=== PATIENT | female | born 1965 | race Caucasian/White ===

== ENCOUNTER 2021-12-18 16:34 | Observation (INO) | payer OTHER ==
[2021-12-18] MEDS ORDERED: NITROGLYCERIN SL TABS 0.4 MG TAB SUBLINGUAL STA (16:46)
[2021-12-18] MEDS ORDERED: ASPIRIN 81 MG PO STA (16:46)
--- NOTE | 2021-12-18 16:49 | ED ---
General Adult HPI - General Chief complaint: Chest Pain Stated complaint: chest pain Time Seen by Provider: 12/18/21 16:35 Source: patient, EMS Mode of arrival: EMS Limitations: no limitations - History of Present Illness Initial comments: Patient was transferred to our ED from the [facility] stand-alone ED by ambulance for evaluation of chest pain. Patient reports having central and left-sided chest pain radiating to her left arm with associated diaphoresis and nausea for the past 2 days. Patient states that her pain has been constant, but waxes and wanes. Patient states that her pain is currently 5/10 in severity. Patient had an EKG, labs and chest x-ray done at the [facility] ED prior to transfer to our ED. Patient's troponin was reportedly negative. Patient's chest x-ray reportedly showed no acute process. Patient had a negative Covid test obtained today. Patient's labs were all reviewed myself and are only pertinent for an elevated WBC count of 13.1, elevated platelets of 419 and elevated glucose of 121. Patient denies taking any nitroglycerin or medication for her chest pain today. Patient reports only taking 1 baby aspirin earlier today. Patient denies receiving any medication at the [facility] ED today. Patient states that her care asst is here at [facility]. - Related Data Home Medications Medication Instructions Recorded Confirmed Nicotine 21Mg/24Hr Patch [Habitrol] 1 patch TRANSDERM DAILY 09/07/21 12/18/21 Atorvastatin [Lipitor] 20 mg PO DAILY 12/18/21 12/18/21 Ipratropium-Albuterol Nebulize 3 ml INHALATION RT-QID PRN 12/18/21 12/18/21 [Duoneb 0.5 mg-3 mg/3 ml Soln] Nitroglycerin Sl Tabs [Nitrostat] 0.4 mg SL Q5M PRN 12/18/21 12/18/21 Spironolactone [Aldactone] 25 mg PO DAILY 12/18/21 12/18/21 Vitamin B Complex 1 cap PO DAILY 12/18/21 12/18/21 carvediloL [Coreg] 3.125 mg PO BID 12/18/21 12/18/21 lisinopriL [Zestril] 5 mg PO DAILY 12/18/21 12/18/21 Previous Rx's Medication Instructions Recorded Albuterol Inhaler [Ventolin Hfa 1 puff INHALATION RT-QID PRN 30 09/02/21 Inhaler] Days #8 gm Aspirin 81 mg PO DAILY 30 Days #30 09/02/21 Allergies Allergy/AdvReac Type Severity Reaction Status Date / Time No Known Allergies Allergy Verified 12/18/21 16:45 Review of Systems ROS Statement: Those systems with pertinent positive or pertinent negative responses have been documented in the HPI. ROS Other: All systems not noted in ROS Statement are negative. Past Medical History Past Medical History: Coronary Artery Disease (CAD), Hyperlipidemia History of Any Multi-Drug Resistant Organisms: None Reported Past Surgical History: Appendectomy, Tubal Ligation Additional Past Surgical History / Comment(s): Hodgkins lymphoma x2 back in 2007 and 2009, stent Past Anesthesia/Blood Transfusion Reactions: No Reported Reaction Past Psychological History: No Psychological Hx Reported Smoking Status: Current every day smoker Past Alcohol Use History: None Reported Past Drug Use History: None Reported General Exam Limitations: no limitations General appearance: alert, in no apparent distress Head exam: Present: atraumatic, normocephalic Eye exam: Present: normal appearance, EOMI ENT exam: Present: mucous membranes moist Neck exam: Present: other (Trachea is in midline) Respiratory exam: Present: normal lung sounds bilaterally. Absent: respiratory distress, wheezes, rales, rhonchi, stridor, chest wall tenderness Cardiovascular Exam: Present: regular rate, normal rhythm, normal heart sounds, other (Normal radial pulses bilaterally) GI/Abdominal exam: Present: soft. Absent: distended, tenderness, guarding Extremities exam: Present: other (Negative Homans sign bilaterally). Absent: tenderness, pedal edema, calf tenderness Neurological exam: Present: alert, oriented X3. Absent: motor sensory deficit Psychiatric exam: Present: normal affect, normal mood Skin exam: Present: warm, dry, intact, normal color Course Vital Signs 12/18/21 12/18/21 16:37 18:51 Temperature 98.8 F Pulse Rate 104 H 96 Respiratory 20 20 Rate Blood Pressure 113/78 131/66 O2 Sat by Pulse 97 98 Oximetry - Reevaluation(s) Reevaluation #1: 12/18/21 20:56 Case, H&P, test results and ED management were discussed with Dr. Rj Apple. He accepts hospital admission. He has no further recommendations at this time. 12/18/21 20:59 Patient remains alert and breathing comfortably. Patient denies development of any new symptoms while in the ED. Patient is aware of her test results, and she agrees with hospital admission at this time. EKG Findings - EKG Comments: EKG Findings:: Normal sinus rhythm, ventricular rate of 94 bpm, no ectopy, left bundle branch block, normal NM interval, QRS duration of 134 ms, normal QT interval, normal axis, no significant change when compared to 09/08/2021 EKG Medical Decision Making - Medical Decision Making Patient has had 2 negative troponins now. Patient's EKG shows a left bundle branch block and is unchanged. Patient's CT angiography chest is negative for pulmonary embolism. Given the patient's symptoms and history of CAD/cardiac risk factors, will admit the patient to the hospital for cardiac monitoring, serial troponins and further evaluation. Dr. Rj Apple has accepted hospital admission. - Lab Data Lab Results 12/18/21 12/18/21 12/18/21 Range/Units 16:52 16:52 16:52 PT 9.8 (9.0-12.0) sec INR 0.9 (<1.2) APTT 22.1 (22.0-30.0) sec D-Dimer 1.17 H (<0.60) mg/L FEU Troponin I <0.012 (0.000-0.034) ng/mL NT-Pro-B Natriuret Pep 1730 pg/mL - Radiology Data Chest x-ray: No acute cardiopulmonary disease/process. CT angiography chest with IV contrast: No evidence of pulmonary embolism. Right lower lobe a 9 mm pulmonary nodule. Follow-up chest CT in 3 months versus PET/CT is recommended. Right medial lower lobe consolidation which may represent atelectasis. Attention on follow-up imaging. Mild COPD changes. Mild cardiomegaly with trace pericardial effusion. Reflux of contrast into the IVC and hepatic veins suggestive of a right heart dysfunction. Disposition Clinical Impression: Chest pain Disposition: ADMITTED IP TO THIS HOSP Condition: Stable Is patient prescribed a controlled substance at d/c from ED?: No Referrals: Nnig Acosta MD [Primary Care Provider] - 1-2 days Time of Disposition: 21:00
--- NOTE | 2021-12-18 17:34 | XR ---
EXAMINATION TYPE: XR chest 2V DATE OF EXAM: 12/18/2021 5:24 PM COMPARISON: Chest radiographs from 08/31/2021. TECHNIQUE: XR chest 2V Frontal and lateral views of the chest . CLINICAL INDICATION:Female, 56 years old with history of Chest Pain; FINDINGS: Lungs/Pleura: No pleural effusion, pneumothorax, or focal consolidation. Pulmonary vascularity: Unremarkable. Heart/mediastinum: Cardiomediastinal silhouette is unremarkable. Musculoskeletal: No acute osseous pathology. IMPRESSION: No acute cardiopulmonary disease/process.
[2021-12-18 17:38] LABS: INR 0.9 (<1.2); Partial Thromboplastin Time 22.1 sec (22.0-30.0); Prothrombin Time 9.8 sec (9.0-12.0)
[2021-12-18] MEDS ORDERED: SODIUM CHLORIDE 0.9% 500 ML 500 ML IV ONE (18:10)
--- NOTE | 2021-12-18 19:00 | CT ---
EXAMINATION TYPE: CT chest angio for PE CT DLP: 315.5 mGycm, Automated exposure control for dose reduction was used. DATE OF EXAM: 12/18/2021 6:41 PM COMPARISON: Chest radiograph from same day. CLINICAL INDICATION:Female, 56 years old with history of chest pain, elevated d-dimer TECHNIQUE/CONTRAST: CTA scan of the thorax is performed with IV Contrast, patient injected with 100 mL of Isovue 370, pul monary embolism protocol. MIP images are created and reviewed. FINDINGS: Pulmonary Artery: There is no evidence for a filling defect within the pulmonary vasculature to sugge st acute pulmonary embolism. The pulmonary artery is of normal size. Reflux of contrast in the IVC a nd hepatic veins. Lungs/Pleura: No pleural effusion or pneumothorax. Left lower lobe subsegmental atelectasis. Medial r ight lower lobe consolidation. Medial right lower lobe 9 mm pulmonary nodule (series 406, image 86). Mild paraseptal and centrilobular emphysematous changes. Airway: Large airways are patent. Heart: Mildly enlarged with left ventricle. Trace pericardial effusion. Vasculature: No evidence of aortic aneurysm. Mediastinum: No gross evidence of adenopathy. Multiple nonenlarged mediastinal calcified lymph nodes. Musculoskeletal: No acute osseous abnormalities Soft Tissues: Unremarkable. Lower neck: No significant findings. Upper Abdomen: No significant findings. IMPRESSION: * No evidence of pulmonary embolism. * Right lower lobe 9 mm pulmonary nodule. Follow-up chest CT in 3 months versus PET/CT is recommende d. * Right medial lower lobe consolidation which may represent atelectasis. Attention on follow-up imag ing. * Mild COPD changes. * Mild cardiomegaly with trace pericardial effusion. * Reflux of contrast into the IVC and hepatic veins suggestive of right heart dysfunction.
[2021-12-19] MEDS: IPRATROPIUM-ALBUTEROL 3 ML NEB INHALATION PRN ×3 (02:34→11:19)
[2021-12-19 03:30] LABS: Basophils # (A) 0.1 k/uL (0-0.2); Basophils % (A) 1 %; Eosinophils # (A) 0.1 k/uL (0-0.7); Eosinophils % (A) 1 %; HCT 38.2 % (34.0-46.0); HGB 12.3 gm/dL (11.4-16.0); Lymphocytes # (A) 2.2 k/uL (1.0-4.8); Lymphocytes % (A) 24 %; MCH 33.7 pg (25.0-35.0); MCHC 32.3 g/dL (31.0-37.0); MCV 104.4 fL (80.0-100.0); Macrocytosis Slight; Mean Platelet Volume 6.6; Monocytes # (A) 0.7 k/uL (0-1.0); Monocytes % (A) 7 %; Neutrophils # (A) 6.1 k/uL (1.3-7.7); Neutrophils % (A) 66 %; Platelet Count 352 k/uL (150-450); RBC 3.66 m/uL (3.80-5.40); RDW 11.8 % (11.5-15.5); WBC 9.3 k/uL (3.8-10.6)
[2021-12-19 03:41] LABS: ALT 12 U/L (4-34); AST 20 U/L (14-36); African American GFR (CKD) >90 (>60 ml/min/1.73 sqM); Albumin 3.8 g/dL (3.5-5.0); Alkaline Phosphatase 97 U/L (38-126); Anion Gap 5 mmol/L; Blood Urea Nitrogen 10 mg/dL (7-17); Calcium 9.3 mg/dL (8.4-10.2); Carbon Dioxide 30 mmol/L (22-30); Chloride 98 mmol/L (98-107); Glucose 121 mg/dL (74-99); Non-African American GFR(CKD) >90 (>60 ml/min/1.73 sqM); Potassium 4.2 mmol/L (3.5-5.1); Sodium 133 mmol/L (137-145); Total Bilirubin 0.4 mg/dL (0.2-1.3); Total Protein 6.1 g/dL (6.3-8.2)
[2021-12-19] MEDS: ASPIRIN 81 MG PO SCH (09:37)
[2021-12-19] MEDS: SPIRONOLACTONE 25 MG TAB PO SCH (09:37)
[2021-12-19] MEDS: carvediloL 3.125 MG TAB PO SCH ×2 (09:37→17:26)
[2021-12-19] MEDS: NICOTINE 21MG/24HR PATCH TRANSDERM SCH (09:37)
[2021-12-19] MEDS: lisinopriL 5 MG TAB PO SCH (09:37)
[2021-12-19] MEDS: HEPARIN SODIUM,PORCINE/PF 5,000 UNIT/0.5 ML SYRINGE SQ SCH ×2 (09:37→19:58)
[2021-12-19] MEDS: ATORVASTATIN 20 MG TAB PO SCH (09:37)
[2021-12-19] MEDS: HYDROcodone/APAP 5-325MG 1 EACH TAB PO PRN ×4 (09:45→21:48)
[2021-12-19 09:50] LABS: Chol/HDL Ratio 2.87 Ratio; LDL Cholesterol,Calculated 72.1 mg/dL (0.0-131.0)
--- NOTE | 2021-12-19 12:10 | HP ---
HISTORY AND PHYSICAL HISTORY OF PRESENT ILLNESS: 56-year-old white female came to the hospital from [place], transferred here due to atypical chest pain. It is more pleuritic in nature and nerve numbing pain shooting down left arm. She is admitted to rule out myocardial infarction for possible stent blockage as she had a recent stent a few months ago. She has had no other blockages at the heart catheterization at that time. She had negative test for COVID. White count 13.1, platelets 319. Nitroglycerin was taken for pain. Her left-sided rib pain is more pleuritic in nature and she has second pain shooting down her left arm. The pressure in chest has resolved since admission. MEDICATIONS: Home medicines: Nicotine 21 mg patch daily, Lipitor 20 daily, DuoNeb q.i.d., spironolactone 25 mg daily, Coreg 3.125 b.i.d., Zestril 5 mg daily. ALLERGIES: Negative. REVIEW OF SYMPTOMS: 14 point review of systems otherwise negative. PAST MEDICAL HISTORY: Coronary artery disease, dyslipidemia. PAST SURGICAL HISTORY: Surgeries: Appendectomy, tubal ligation, Hodgkin's lymphoma times 2 in the back 2007 and 2009. Otherwise, 14-point review of systems negative. PHYSICAL EXAMINATION: Vital signs stable. Afebrile. Pulse is 96-104, temp 98, respiratory 18-20, blood pressure is 113-131 over 60s. O2 97 to 98. Cardiovascular S1-S2. Lungs scattered rhonchi and wheeze. Hematology negative Homans. Psych: Fair mood and affect. EKG shows sinus rhythm. Musculoskeletal: She has tenderness to palpation on left paracervical muscle traveling down her left shoulder. She can raise her arms overhead. EKG normal sinus rhythm. Troponins are negative times three. D-dimer is 1.17. CTA of the chest was negative for any source that could be causing her pain. No pulmonary embolism. She does have a 9 mm nodule in the chest, which is not causing her any pain but have to be followed up outpatient. ASSESSMENT AND PLAN: 1. She has right heart dysfunction probably from secondary chronic obstructive pulmonary disease. 2. Atypical chest pain. 3. Possible pleurisy. 4. Cervical neuropathy, neuritis. 5. Await for Cardiology recommendations. 6. Give steroids now for pleuritic-type pain. MMODL / IJN: [id number] /
[2021-12-19] MEDS: methylPREDNISolone SOD SUCCI 40 MG/ML 1 ML VIAL IV SCH ×2 (12:47→19:58)
--- NOTE | 2021-12-19 13:22 | CONS ---
CONSULTATION CHIEF COMPLAINT: Chest pain HISTORY OF PRESENT ILLNESS: Ana is a 56-year-old lady with history of coronary artery disease, status post cardiac catheterization and angioplasty of mid right coronary artery and ischemic cardiomyopathy who presented to hospital complaining of chest pain. She describes it as a recurrent episodes of precordial chest pressure with left arm pain and neck discomfort that happened over the last 2 days. Since angioplasty in August, she had been doing well and had an outpatient stress test and echocardiogram whose results are not available to me. Then suddenly she developed these symptoms. Her EKG shows sinus rhythm with left bundle branch block. Three sets of cardiac enzymes have been negative. Creatinine is normal. Hemoglobin is normal. Given the recent coronary angioplasty and new symptoms that are typical for angina, I advised the patient to undergo cardiac catheterization to rule out significant obstructive disease at the recent stenting. I discussed risks, benefits and alternatives. PAST MEDICAL HISTORY: 1. Significant for coronary artery disease, status post recent angioplasty. 2. Ischemic cardiomyopathy. 3. Mild aortic stenosis. MEDICATIONS: Medications at home include: Zestril 5 mg daily, Coreg 3.125 b.i.d., Aldactone, Lipitor 20 mg daily, aspirin and albuterol inhaler. ALLERGIES: There are no known drug allergies. FAMILY HISTORY: Negative for premature coronary artery disease. SOCIAL HISTORY: Significant for smoking. There is no history of EtOH abuse or drug abuse. REVIEW OF SYSTEMS: HEENT is unremarkable. CARDIAC as described above. RESPIRATORY as described above. GI negative. GENITOURINARY negative. ALLERGY: None. SKIN negative. MUSCULOSKELETAL significant for arthritis. PSYCHOSOCIAL negative. DERM negative. CONSTITUTIONAL negative. ONCOLOGICAL negative. 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 EXAM: Comfortable at rest. Vital signs are stable. There is no jugular venous distention. Carotid upstroke is normal. There is no bruit. Chest exam reveals good air entry bilaterally. Heart exam reveals first and second heart sounds. No gallop. No murmur. Abdomen is soft. Exam of extremities did not reveal any edema. Peripheral pulses are felt. LABS: Labs show that 3 sets of troponins are negative. Creatinine is 0.4. Hemoglobin is 12.3. Platelet count is 352. ASSESSMENT AND PLAN: Precordial chest pain in a patient with ischemic cardiomyopathy and recent coronary intervention. PLAN: The patient will undergo cardiac catheterization by Dr. Suero who sees her regularly in the office. The patient had a CT scan of the chest on this admission that was negative for pulmonary embolism. MMRAYNE / DAMIANN: [id number] /
[2021-12-19] MEDS: ALBUTEROL NEBULIZED 2.5 MG/3 ML INHALATION PRN (19:58)
[2021-12-19] MEDS ORDERED: ZOLPIDEM 5 MG TAB PO PRN (22:10)
[2021-12-20] MEDS: methylPREDNISolone SOD SUCCI 40 MG/ML 1 ML VIAL IV SCH ×2 (04:21→12:07)
[2021-12-20] MEDS: HYDROcodone/APAP 5-325MG 1 EACH TAB PO PRN ×3 (04:44→12:46)
[2021-12-20] MEDS: ALBUTEROL NEBULIZED 2.5 MG/3 ML INHALATION PRN (04:46)
[2021-12-20] MEDS ORDERED: HEPARIN SODIUM,PORCINE 10,000 UNIT in SODIUM CHLORIDE 0.9% 1,000 ML IRRIGATION PRN (07:00)
[2021-12-20] MEDS ORDERED: HEPARIN SODIUM,PORCINE 2,500 UNIT in SODIUM CHLORIDE 0.9% 250 ML IRRIGATION PRN (07:00)
[2021-12-20] MEDS ORDERED: ASPIRIN 325 MG TAB PO STA (07:26)
[2021-12-20] MEDS ORDERED: ALPRAZolam 0.5 MG TAB PO PRN (07:26)
[2021-12-20] MEDS ORDERED: ATORVASTATIN 80 MG TAB PO STA (07:26)
[2021-12-20] MEDS ORDERED: ALPRAZolam 0.25 MG TAB PO PRN (07:26)
[2021-12-20] MEDS ORDERED: NITROGLYCERIN SL TABS 0.4 MG TAB SUBLINGUAL PRN (07:26)
[2021-12-20] MEDS ORDERED: SODIUM CHLORIDE 0.9% 1,000 ML in EMPTY BAG 1 BAG IV SCH (07:30)
[2021-12-20] MEDS: carvediloL 3.125 MG TAB PO SCH (08:26)
[2021-12-20] MEDS: ASPIRIN 81 MG PO SCH (08:26)
[2021-12-20] MEDS: ATORVASTATIN 20 MG TAB PO SCH (08:26)
[2021-12-20] MEDS: lisinopriL 5 MG TAB PO SCH (08:26)
[2021-12-20] MEDS: SPIRONOLACTONE 25 MG TAB PO SCH (08:26)
[2021-12-20] MEDS: NICOTINE 21MG/24HR PATCH TRANSDERM SCH (08:26)
[2021-12-20] MEDS: HEPARIN SODIUM,PORCINE/PF 5,000 UNIT/0.5 ML SYRINGE SQ SCH (08:27)
[2021-12-20] MEDS: IPRATROPIUM-ALBUTEROL 3 ML NEB INHALATION PRN (09:14)
[2021-12-20] MEDS ORDERED: VERAPAMIL 2.5 MG/ML 2 ML AMP ONE (09:35)
[2021-12-20] MEDS ORDERED: IV FLUID CONTINUATION 950 ML IV ONE (09:50)
[2021-12-20] MEDS ORDERED: HEPARIN SODIUM 1,000 UN/ML (10ML VL) ONE (09:52)
[2021-12-20] MEDS ORDERED: fentaNYL (PF) 50 MCG/ML 2 ML AMP ONE (09:52)
[2021-12-20] MEDS ORDERED: fentaNYL (PF) 50 MCG/ML 2 ML AMP IV ONE (10:13)
[2021-12-20] MEDS ORDERED: LIDOCAINE 1% INJ 10MG/ML (5 ML VIAL-PF) SQ ONE ×2 (10:27→10:40)
[2021-12-20] MEDS: MIDAZOLAM 2 MG/2 ML VIAL IV ONE ×2 (10:28→10:45)
[2021-12-20] MEDS ORDERED: VERAPAMIL SYRINGE (5 MG/10 ML) INTRAARTER ONE (10:43)
[2021-12-20] MEDS ORDERED: HEPARIN SODIUM 1,000 UN/ML (10ML VL) IV ONE (10:45)
[2021-12-20] MEDS ORDERED: IOPAMIDOL-370 125ML BTL INJ ONE ×2 (10:51→10:54)
[2021-12-20] MEDS ORDERED: RX INFO: IV CONTRAST WAS GIVEN 1 EACH MISC MISCELLANE PRN (11:05)
--- NOTE | 2021-12-20 11:11 | P.CARDCATH ---
Date of Procedure: 12/20/21 Description of Procedure: Cardiac Catheterization: The patient is a 48 atrial male with known history of chronic tobacco use, hypertension, hyperlipidemia, chronic alcohol intake in the past and stenting of her RCA in August who presented with symptoms of chest discomfort but no evidence of acute myocardial infarction. She was evaluated by Dr. Lim Recommendations were made regarding cardiac catheterization, the risks and the complications were discussed with the patient who is in full understanding and agreement. Procedure Description: Patient was brought to record label intern in fasting semi-sedated state after receiving Fentanyl and Benadryl achieiving moderate conscious sedated state. Using Xylocaine Anesthesia and Seldinger technique, a 6-Barbadian sheath was introduced in the left radial artery . Subsequently, selective coronary angiography was performed using a 5-Barbadian 4 bend Allen catheter. Multiple views of the coronary artery including hemiaxial views were obtained. The 5-Barbadian pigatail catheter was used to cross the aortic valve and LVEDP was calculated. Following that, catheter and sheath were removed. Hemostasis was obtained with deployment of TR band . There was no immediate complication. Patient was returned to room in stable condition. Of note, the patient received a total of 4500units of intravenous heparin as well as intra-arterial verapamil. Findings: Fluoroscopy there is severe calcification involving the LAD and to a lesser degree the RCA Left main: This is a large size vessel, bifurcating LAD and left circumflex, the left main has no evidence of high-grade stenosis LAD: This is a large size vessel, heavily calcified, tapers down in the distal third. Giving rise to a large diagonal branch. The LAD has mild intimal disease in the proximal and midsegment of 20% with no high-grade stenosis Left circumflex: This is a dominant vessel, giving rise to a large obtuse marginal branch, the proximal left circumflex has 20% stenosis, the rest of the vessel has no high-grade stenosis. RCA: This is a dominant vessel, bifurcating into PDA and PLV. The stented segme nt in the mid RCA is patent. There is mild diffuse intimal disease throughout the course of the vessel Left Ventriculogram: Not performed Hemodynamics: There was no gradient across the aortic valve, LVEDP was 16-20 mmHg Conclusion: 1. Calcified coronary arteries 2. Patent stent in the RCA 3. Mild triple vessel disease 4. Mildly elevated LVEDP Recommendations: Have discussed the findings with the patient and her family. The importance of smoking cessation was discussed with her in detail., The findings and the recommendations were discussed with the patient and the family and they were in full understanding and agreement. Duration of sedation is 31 minutes.
[2021-12-20] MEDS ORDERED: CLOPIDOGREL 75 MG TAB PO SCH (11:15)
[2021-12-20] MEDS ORDERED: SODIUM CHLORIDE 0.9% 1,000 ML IV SCH (11:15)
[2021-12-20 15:11] VITALS: BP 101/66; PULSE 101; RESP 16; TEMP 98.3
== END 2021-12-20 15:43 | disposition home or self-care (01) ==
LOC: EC 16:34 → 6NMEDSUR 21:00
PROVIDERS: ADMIT Family Medicine; ATTEND Family Medicine
DX: I25.10 Atherosclerotic heart disease of native coronary artery without angina pectoris (principal); I25.84 Coronary atherosclerosis due to calcified coronary lesion; I11.0 Hypertensive heart disease with heart failure; I50.811 Acute right heart failure; I10 Essential (primary) hypertension; I25.5 Ischemic cardiomyopathy; F17.200 Nicotine dependence, unspecified, uncomplicated; E78.5 Hyperlipidemia, unspecified; G62.9 Polyneuropathy, unspecified; M54.12 Radiculopathy, cervical region; Z95.5 Presence of coronary angioplasty implant and graft; I44.7 Left bundle-branch block, unspecified; Z20.822 Contact with and (suspected) exposure to COVID-19; Z85.71 Personal history of Hodgkin lymphoma; Z90.49 Acquired absence of other specified parts of digestive tract; Z98.51 Tubal ligation status; Z79.82 Long term (current) use of aspirin; Z79.899 Other long term (current) drug therapy
CPT/HCPCS: 96376 ×2; 96372; 96374; 99285; 36415; 94640 ×4; 93005; 93458; 85379; 83880; 80061; 80053; 84443; 84484 ×2; 85025; 85610; 85730; 83036; 71046; 71275; G0378 ×3; C1769 ×2; C1894; S4990 ×2; J2250; J2920 ×2; J2001; J3010; J1644 ×3; Q9967 ×2

== ENCOUNTER 2022-04-20 11:23 | Emergency (ER) | payer OTHER ==
[2022-04-20 11:36] VITALS: RESP 18; TEMP 98.3
[2022-04-20] MEDS ORDERED: IPRATROPIUM-ALBUTEROL 3 ML NEB INHALATION STA (12:06)
--- NOTE | 2022-04-20 12:08 | ED ---
Weakness HPI - General Chief complaint: Weakness Stated complaint: weakness, near syncope Time Seen by Provider: 04/20/22 11:41 Source: patient, family, RN notes reviewed Mode of arrival: wheelchair Limitations: no limitations - History of Present Illness Initial comments: This is a 56-year-old female who presents to the emergency department for weakness. States that over the last 3-4 weeks she has had coughing and congestion. Over the last 1-2 weeks, she's had increasing shortness of breath. She does have pain in the upper back that she believes is from all of the coughing but denies any specific chest pain. Denies any history of similar symptoms in the past. She does have coronary artery disease and follows with a retention specialist, Dr. Suero, and last saw him in August of this year. Denies any fevers, chills, sore throat, abdominal pain, nausea, vomiting, diarrhea, or headaches. MD Complaint: generalized weakness, lack of energy Onset/Timin -: week(s) Location: generalized Associated Symptoms: shortness of breath - Related Data Home Medications Medication Instructions Recorded Confirmed Spironolactone [Aldactone] 25 mg PO DAILY 12/18/21 04/20/22 Vitamin B Complex 1 cap PO DAILY 12/18/21 04/20/22 carvediloL [Coreg] 3.125 mg PO BID 12/18/21 04/20/22 lisinopriL [Zestril] 5 mg PO DAILY 12/18/21 04/20/22 Albuterol Inhaler [Ventolin Hfa 2 puff INHALATION RT-Q6H PRN 04/20/22 04/20/22 Inhaler] Atorvastatin [Lipitor] 80 mg PO DAILY 04/20/22 04/20/22 Previous Rx's Medication Instructions Recorded Aspirin 81 mg PO DAILY 30 Days #30 09/02/21 Clopidogrel [Plavix] 75 mg PO DAILY #90 tablet 12/20/21 Doxycycline [Vibramycin] 100 mg PO BID 10 Days #20 capsule 04/20/22 Allergies Allergy/AdvReac Type Severity Reaction Status Date / Time No Known Allergies Allergy Verified 04/20/22 12:32 Review of Systems ROS Statement: Those systems with pertinent positive or pertinent negative responses have been documented in the HPI. ROS Other: All systems not noted in ROS Statement are negative. Past Medical History Past Medical History: Coronary Artery Disease (CAD), Hyperlipidemia Additional Past Medical History / Comment(s): stent (July,) History of Any Multi-Drug Resistant Organisms: None Reported Past Surgical History: Appendectomy, Heart Catheterization With Stent, Tubal Ligation Additional Past Surgical History / Comment(s): Hodgkins lymphoma x2 back in 2007 and 2009, stent Past Anesthesia/Blood Transfusion Reactions: No Reported Reaction Past Psychological History: No Psychological Hx Reported Smoking Status: Current every day smoker Past Alcohol Use History: None Reported Past Drug Use History: None Reported - Past Family History Father Family Medical History: Cancer Additional Family Medical History / Comment(s): Prostate CA, macular degeneration Mother Family Medical History: No Reported History Sister(s) Additional Family Medical History / Comment(s): epilepsy General Exam Limitations: no limitations General appearance: alert, in no apparent distress Head exam: Present: atraumatic, normocephalic, normal inspection Respiratory exam: Present: decreased breath sounds, prolonged expiratory Cardiovascular Exam: Present: normal rhythm, tachycardia GI/Abdominal exam: Present: soft, normal bowel sounds. Absent: distended, tenderness, guarding, rebound, rigid Neurological exam: Present: alert, oriented X3, CN II-XII intact Psychiatric exam: Present: normal affect, normal mood Skin exam: Present: warm, dry, intact, normal color. Absent: rash Course Vital Signs 04/20/22 04/20/22 04/20/22 11:32 12:53 13:04 Temperature 98.3 F Pulse Rate 111 H 74 79 Respiratory 18 Rate Blood Pressure 89/59 O2 Sat by Pulse 96 Oximetry 04/20/22 13:42 Temperature Pulse Rate 97 Respiratory 18 Rate Blood Pressure 99/71 O2 Sat by Pulse 96 Oximetry Medical Decision Making - Medical Decision Making This is a 56-year-old female who presents to the emergency department for shortn ess of breath and weakness. Lab work reveals leukocytosis and an elevated d- dimer. COVID and influenza testing were negative. Urinalysis negative for any signs of infection. My interpretation of the chest x-ray reveals no localized consolidations or infiltrates. There is hyperinflation suggestive of COPD. Due to the elevated d-dimer, CT angiogram of the chest was obtained. On the CT angiogram I identify no signs of a pulmonary embolus and I again identify no signs of a consolidation or infiltrate. Due to the leukocytosis and shortness of breath with ongoing coughing and congestion, symptoms may be related to an infectious bronchitis. Prescription for 10 day course of doxycycline was provided. She was noted to be somewhat hypotensive during her visit here, which is not common for her. I did strongly recommend a fluid bolus prior to discharge, however the patient declined despite my strongest recommendations. Advised that if she continues to have low blood pressure, this can lead to other consequences. She expresses understanding and is willing to accept these risks. Recommended she skip her blood pressure medication tomorrow and resume it the following day. I did advise that she try using her rescue inhaler during these periods of shortness of breath to see if it is beneficial. Return precautions reviewed in depth, the patient is instructed to return to the emergency department with any new, worsening, or concerning symptoms. Patient verbalized understanding. This case was discussed in detail with the attending ED physician. Presentation, findings, and treatment plan discussed in detail as well. - Lab Data Result diagrams: 04/20/22 12:05 04/20/22 12:05 Lab Results 04/20/22 04/20/22 04/20/22 Range/Units 12:05 12:05 12:05 WBC 20.1 H (3.8-10.6) k/uL RBC 4.49 (3.80-5.40) m/uL Hgb 14.9 (11.4-16.0) gm/dL Hct 42.3 (34.0-46.0) % MCV 94.3 (80.0-100.0) fL MCH 33.1 (25.0-35.0) pg MCHC 35.1 (31.0-37.0) g/dL RDW 12.6 (11.5-15.5) % Plt Count 552 H (150-450) k/uL MPV 7.3 Neutrophils % 85 % Lymphocytes % 9 % Monocytes % 3 % Eosinophils % 1 % Basophils % 1 % Neutrophils # 16.9 H (1.3-7.7) k/uL Lymphocytes # 1.9 (1.0-4.8) k/uL Monocytes # 0.6 (0-1.0) k/uL Eosinophils # 0.2 (0-0.7) k/uL Basophils # 0.1 (0-0.2) k/uL PT 11.6 (9.0-12.0) sec INR 1.1 (<1.2) APTT 24.4 (22.0-30.0) sec D-Dimer 0.79 H (<0.60) mg/L FEU Sodium (137-145) mmol/L Potassium (3.5-5.1) mmol/L Chloride (98-107) mmol/L Carbon Dioxide (22-30) mmol/L Anion Gap mmol/L BUN (7-17) mg/dL Creatinine (0.52-1.04) mg/dL Est GFR (CKD-EPI)AfAm (>60 ml/min/1.73 sqM) Est GFR (CKD-EPI)NonAf (>60 ml/min/1.73 sqM) Glucose (74-99) mg/dL Plasma Lactic Acid Francis (0.7-2.0) mmol/L Calcium (8.4-10.2) mg/dL Phosphorus (2.5-4.5) mg/dL Magnesium (1.6-2.3) mg/dL Total Bilirubin (0.2-1.3) mg/dL AST (14-36) U/L ALT (4-34) U/L Alkaline Phosphatase (38-126) U/L Troponin I (0.000-0.034) ng/mL NT-Pro-B Natriuret Pep pg/mL Total Protein (6.3-8.2) g/dL Albumin (3.5-5.0) g/dL TSH (0.465-4.680) mIU/L Urine Color Yellow Urine Appearance Clear (Clear) Urine pH 5.5 (5.0-8.0) Ur Specific [place] 1.012 (1.001-1.035) Urine Protein Negative (Negative) Urine Glucose (UA) Negative (Negative) Urine Ketones 1+ H (Negative) Urine Blood Negative (Negative) Urine Nitrite Negative (Negative) Urine Bilirubin Negative (Negative) Urine Urobilinogen <2.0 (<2.0) mg/dL Ur Leukocyte Esterase Negative (Negative) Coronavirus (PCR) (Not Detectd) Influenza Type A RNA (Not Detectd) Influenza Type B (PCR) (Not Detectd) 04/20/22 04/20/22 04/20/22 Range/Units 12:05 12:05 12:05 WBC (3.8-10.6) k/uL RBC (3.80-5.40) m/uL Hgb (11.4-16.0) gm/dL Hct (34.0-46.0) % MCV (80.0-100.0) fL MCH (25.0-35.0) pg MCHC (31.0-37.0) g/dL RDW (11.5-15.5) % Plt Count (150-450) k/uL MPV Neutrophils % % Lymphocytes % % Monocytes % % Eosinophils % % Basophils % % Neutrophils # (1.3-7.7) k/uL Lymphocytes # (1.0-4.8) k/uL Monocytes # (0-1.0) k/uL Eosinophils # (0-0.7) k/uL Basophils # (0-0.2) k/uL PT (9.0-12.0) sec INR (<1.2) APTT (22.0-30.0) sec D-Dimer (<0.60) mg/L FEU Sodium 134 L (137-145) mmol/L Potassium 4.1 (3.5-5.1) mmol/L Chloride 103 (98-107) mmol/L Carbon Dioxide 20 L (22-30) mmol/L Anion Gap 11 mmol/L BUN 17 (7-17) mg/dL Creatinine 0.54 (0.52-1.04) mg/dL Est GFR (CKD-EPI)AfAm >90 (>60 ml/min/1.73 sqM) Est GFR (CKD-EPI)NonAf >90 (>60 ml/min/1.73 sqM) Glucose 114 H (74-99) mg/dL Plasma Lactic Acid Francis 1.0 (0.7-2.0) mmol/L Calcium 10.0 (8.4-10.2) mg/dL Phosphorus 3.9 (2.5-4.5) mg/dL Magnesium 1.7 (1.6-2.3) mg/dL Total Bilirubin 0.6 (0.2-1.3) mg/dL AST 24 (14-36) U/L ALT 22 (4-34) U/L Alkaline Phosphatase 115 (38-126) U/L Troponin I <0.012 (0.000-0.034) ng/mL NT-Pro-B Natriuret Pep pg/mL Total Protein 6.7 (6.3-8.2) g/dL Albumin 4.4 (3.5-5.0) g/dL TSH 1.600 (0.465-4.680) mIU/L Urine Color Urine Appearance (Clear) Urine pH (5.0-8.0) Ur Specific [place] (1.001-1.035) Urine Protein (Negative) Urine Glucose (UA) (Negative) Urine Ketones (Negative) Urine Blood (Negative) Urine Nitrite (Negative) Urine Bilirubin (Negative) Urine Urobilinogen (<2.0) mg/dL Ur Leukocyte Esterase (Negative) Coronavirus (PCR) (Not Detectd) Influenza Type A RNA (Not Detectd) Influenza Type B (PCR) (Not Detectd) 04/20/22 04/20/22 04/20/22 Range/Units 12:05 12:05 12:05 WBC (3.8-10.6) k/uL RBC (3.80-5.40) m/uL Hgb (11.4-16.0) gm/dL Hct (34.0-46.0) % MCV (80.0-100.0) fL MCH (25.0-35.0) pg MCHC (31.0-37.0) g/dL RDW (11.5-15.5) % Plt Count (150-450) k/uL MPV Neutrophils % % Lymphocytes % % Monocytes % % Eosinophils % % Basophils % % Neutrophils # (1.3-7.7) k/uL Lymphocytes # (1.0-4.8) k/uL Monocytes # (0-1.0) k/uL Eosinophils # (0-0.7) k/uL Basophils # (0-0.2) k/uL PT (9.0-12.0) sec INR (<1.2) APTT (22.0-30.0) sec D-Dimer (<0.60) mg/L FEU Sodium (137-145) mmol/L Potassium (3.5-5.1) mmol/L Chloride (98-107) mmol/L Carbon Dioxide (22-30) mmol/L Anion Gap mmol/L BUN (7-17) mg/dL Creatinine (0.52-1.04) mg/dL Est GFR (CKD-EPI)AfAm (>60 ml/min/1.73 sqM) Est GFR (CKD-EPI)NonAf (>60 ml/min/1.73 sqM) Glucose (74-99) mg/dL Plasma Lactic Acid Francis (0.7-2.0) mmol/L Calcium (8.4-10.2) mg/dL Phosphorus (2.5-4.5) mg/dL Magnesium (1.6-2.3) mg/dL Total Bilirubin (0.2-1.3) mg/dL AST (14-36) U/L ALT (4-34) U/L Alkaline Phosphatase (38-126) U/L Troponin I (0.000-0.034) ng/mL NT-Pro-B Natriuret Pep 410 pg/mL Total Protein (6.3-8.2) g/dL Albumin (3.5-5.0) g/dL TSH (0.465-4.680) mIU/L Urine Color Urine Appearance (Clear) Urine pH (5.0-8.0) Ur Specific [place] (1.001-1.035) Urine Protein (Negative) Urine Glucose (UA) (Negative) Urine Ketones (Negative) Urine Blood (Negative) Urine Nitrite (Negative) Urine Bilirubin (Negative) Urine Urobilinogen (<2.0) mg/dL Ur Leukocyte Esterase (Negative) Coronavirus (PCR) Not Detected (Not Detectd) Influenza Type A RNA Not Detected (Not Detectd) Influenza Type B (PCR) Not Detected (Not Detectd) - EKG Data -: EKG Interpreted by Me EKG Comments: Sinus tachycardia. Normal axis. Left bundle branch block. Ventricular rate 101 bpm, NV interval 157 ms, QRS duration 128 ms, QTC 432 ms. When compared to previous EKG there are: no significant change - Radiology Data Radiology results: report reviewed, image reviewed Disposition Clinical Impression: Acute bronchitis due to infection Disposition: HOME SELF-CARE Instructions (If sedation given, give patient instructions): Acute Bronchitis (ED) Additional Instructions: Return to the emergency department with any new, worsening, or concerning symptoms. Take the antibiotic as prescribed for 10 days. Please try using your rescue inhaler when you feel short of breath. Hold off on your blood pressure medication tomorrow because it is low today. Follow up with your primary care provider in 1-2 days. Prescriptions: Doxycycline [Vibramycin] 100 mg PO BID 10 Days #20 capsule Is patient prescribed a controlled substance at d/c from ED?: No Referrals: Ning Acosta MD [Primary Care Provider] - 1-2 days
[2022-04-20 12:26] LABS: Basophils # (A) 0.1 k/uL (0-0.2); Basophils % (A) 1 %; Eosinophils # (A) 0.2 k/uL (0-0.7); Eosinophils % (A) 1 %; HCT 42.3 % (34.0-46.0); HGB 14.9 gm/dL (11.4-16.0); Lymphocytes # (A) 1.9 k/uL (1.0-4.8); Lymphocytes % (A) 9 %; MCH 33.1 pg (25.0-35.0); MCHC 35.1 g/dL (31.0-37.0); MCV 94.3 fL (80.0-100.0); Mean Platelet Volume 7.3; Monocytes # (A) 0.6 k/uL (0-1.0); Monocytes % (A) 3 %; Neutrophils # (A) 16.9 k/uL (1.3-7.7); Neutrophils % (A) 85 %; Platelet Count 552 k/uL (150-450); RBC 4.49 m/uL (3.80-5.40); RDW 12.6 % (11.5-15.5); WBC 20.1 k/uL (3.8-10.6)
[2022-04-20 12:33] LABS: ALT 22 U/L (4-34); AST 24 U/L (14-36); African American GFR (CKD) >90 (>60 ml/min/1.73 sqM); Albumin 4.4 g/dL (3.5-5.0); Alkaline Phosphatase 115 U/L (38-126); Anion Gap 11 mmol/L; Blood Urea Nitrogen 17 mg/dL (7-17); Carbon Dioxide 20 mmol/L (22-30); Chloride 103 mmol/L (98-107); Glucose 114 mg/dL (74-99); Magnesium 1.7 mg/dL (1.6-2.3); Non-African American GFR(CKD) >90 (>60 ml/min/1.73 sqM); Phosphorus 3.9 mg/dL (2.5-4.5); Potassium 4.1 mmol/L (3.5-5.1); Sodium 134 mmol/L (137-145); Total Bilirubin 0.6 mg/dL (0.2-1.3); Total Protein 6.7 g/dL (6.3-8.2)
--- NOTE | 2022-04-20 12:44 | XR ---
EXAMINATION TYPE: XR chest 2V DATE OF EXAM: 04/20/2022 COMPARISON: 12/18/2021 TECHNIQUE: PA and lateral views submitted. HISTORY: Shortness of breath FINDINGS: The lungs are clear and there is no pneumothorax, pleural effusion, or focal pneumonia. Biapical pl eural thickening. Heart size normal. No overt failure. Atherosclerotic change aorta. Calcifications i n the retrosternal space could be on the basis of granuloma are stable from prior exam. Hyperinflatio n suggests COPD. Chronic rib deformity on the left noted. IMPRESSION: 1. Hyperinflation correlate for COPD..
[2022-04-20 12:47] LABS: INR 1.1 (<1.2); Partial Thromboplastin Time 24.4 sec (22.0-30.0); Prothrombin Time 11.6 sec (9.0-12.0)
[2022-04-20 13:11] LABS: Appearance,Urine Clear (Clear); Bilirubin,Urine Negative (Negative); Blood,Urine Negative (Negative); Color,Urine Yellow; Glucose,Urine (UA) Negative (Negative); Ketones,Urine 1+ (Negative); Leukocyte Esterase,Urine Negative (Negative); Nitrite,Urine Negative (Negative); PH, Urine 5.5 (5.0-8.0); Protein,Urine Negative (Negative); Specific Gravity,Urine 1.012 (1.001-1.035); Urobilinogen,Urine <2.0 mg/dL (<2.0)
[2022-04-20 13:43] VITALS: BP 99/71; PULSE 97
--- NOTE | 2022-04-20 14:23 | CT ---
EXAMINATION TYPE: CT chest angio for PE DATE OF EXAM: 04/20/2022 COMPARISON: 12/18/2021 HISTORY: Weakness, near syncope, elevated d-dimer CT DLP: 265.7 mGycm CONTRAST: CT chest with contrast and 3D reconstruction with MIP imaging is performed with IV Contrast, patient injected with 100, wasted 24 ml mL of Isovue 370. Contrast-enhanced CT of the chest was performed through the course of the pulmonary arteries with farhad g and mediastinal window settings submitted. 3D reconstruction with MIP imaging was also performed. PULMONARY ARTERIES: The pulmonary arteries and their major tributaries are patent. I do not see alona dence for sizable filling defect to suggest pulmonary embolic process. LUNGS: The lungs are clear and free of infiltrate. No evidence for atelectasis. No pulmonary nodule or mass is detected. No pleural effusion. MEDIASTINUM: Thoracic aorta is of normal caliber,however, evaluation is limited given timing of the contrast bolus. If there is concern for thoracic aortic pathology consider YOU. Correlate clinicall y . The heart is not enlarged. No evidence for mediastinal mass. No mediastinal lymph nodes greater than 1cm. HILAR STRUCTURES: No evidence for mass. No hilar lymph nodes greater than 1 cm. UPPER ABDOMEN: No significant abnormality is seen. IMPRESSION: 1. No evidence for Pulmonary embolism at this time.
== END 2022-04-20 15:04 | disposition home or self-care (01) ==
LOC: EC 11:23
DX: J20.8 Acute bronchitis due to other specified organisms (principal); I25.10 Atherosclerotic heart disease of native coronary artery without angina pectoris; E78.5 Hyperlipidemia, unspecified; F17.200 Nicotine dependence, unspecified, uncomplicated; Z20.822 Contact with and (suspected) exposure to COVID-19
CPT/HCPCS: 99285 ×2; 36415; 94640; 85379; 83880; 80053; 84443; 83605; 83735; 84100; 84484; 85025; 85610; 85730; 81003; 87502; 87635; 71046; 71275; Q9967

== ENCOUNTER 2023-03-02 05:48 | Day surgery (SDC) | payer OTHER ==
[2023-02-27 09:01] VITALS: BMI 22.9
[2023-03-02] MEDS ORDERED: SODIUM CHLORIDE 0.9% 1,000 ML in EMPTY BAG 1 BAG IV SCH (05:56)
[2023-03-02] MEDS ORDERED: NITROGLYCERIN SL TABS 0.4 MG TAB SUBLINGUAL PRN (05:56)
[2023-03-02] MEDS ORDERED: ALPRAZolam 0.25 MG TAB PO PRN (05:56)
[2023-03-02] MEDS ORDERED: ASPIRIN 325 MG TAB PO STA (05:56)
[2023-03-02] MEDS ORDERED: ATORVASTATIN 80 MG TAB PO STA (05:56)
[2023-03-02] MEDS ORDERED: HEPARIN SODIUM,PORCINE 10,000 UNIT in SODIUM CHLORIDE 0.9% 1,000 ML IRRIGATION PRN (05:56)
[2023-03-02] MEDS ORDERED: ALPRAZolam 0.5 MG TAB PO PRN (05:56)
[2023-03-02] MEDS ORDERED: HEPARIN SODIUM,PORCINE (1 ML) 2,500 UNIT in SODIUM CHLORIDE 0.9% 250 ML IRRIGATION PRN (05:56)
[2023-03-02] MEDS ORDERED: SODIUM CHLORIDE 0.9% 1,000 ML IV ONE ×2 (06:17→09:30)
[2023-03-02 06:41] VITALS: RESP 16; TEMP 98
[2023-03-02 06:53] LABS: Basophils % (A) 0 %; Eosinophils # (A) 0.3 k/uL (0-0.7); Eosinophils % (A) 3 %; HCT 36.3 % (34.0-46.0); HGB 12.8 gm/dL (11.4-16.0); Lymphocytes # (A) 2.3 k/uL (1.0-4.8); Lymphocytes % (A) 26 %; MCH 38.1 pg (25.0-35.0); MCHC 35.2 g/dL (31.0-37.0); MCV 108.3 fL (80.0-100.0); Macrocytosis Moderate; Mean Platelet Volume 7.7; Monocytes # (A) 0.6 k/uL (0-1.0); Monocytes % (A) 7 %; Neutrophils # (A) 5.5 k/uL (1.3-7.7); Neutrophils % (A) 62 %; Platelet Count 310 k/uL (150-450); RBC 3.36 m/uL (3.80-5.40); RDW 12.5 % (11.5-15.5)
[2023-03-02] MEDS ORDERED: fentaNYL (PF) 50 MCG/ML 2 ML AMP ONE (07:26)
[2023-03-02] MEDS ORDERED: HEPARIN SODIUM 1,000 UN/ML (10ML VL) ONE (07:27)
[2023-03-02] MEDS ORDERED: fentaNYL (PF) 50 MCG/ML 2 ML AMP IVP ONE ×2 (07:32→07:37)
[2023-03-02] MEDS ORDERED: LIDOCAINE 1% INJ 10MG/ML (20 ML MDV) SQ ONE (07:38)
[2023-03-02] MEDS ORDERED: VERAPAMIL SYRINGE (5 MG/10 ML) INTRAARTER ONE (07:42)
[2023-03-02] MEDS: MIDAZOLAM 2 MG/2 ML VIAL IVP ONE ×2 (07:46→07:55)
[2023-03-02] MEDS ORDERED: HEPARIN SODIUM 1,000 UN/ML (10ML VL) IVP ONE (07:46)
[2023-03-02] MEDS ORDERED: IOPAMIDOL-370 100ML BTL INJ ONE (08:01)
[2023-03-02] MEDS ORDERED: RX INFO: IV CONTRAST WAS GIVEN 1 EACH MISC MISCELLANE PRN (08:14)
--- NOTE | 2023-03-02 08:24 | P.CARDCATH ---
Date of Procedure: 03/02/23 Description of Procedure: Cardiac Catheterization: The patient is a 57-year-old female with a known history of CAD, cardiomyopathy, chronic tobacco use and hypertension who had a prior history of PCI and recent symptoms of dyspnea and abnormal MPI. Recommendations were made regarding cardiac catheterization, the risks and the complications were discussed with the patient who is in full understanding and agreement. Procedure Description: Patient was brought to [facility] in fasting semi-sedated state after receiving Fentanyl and Benadryl achieiving moderate conscious sedated state. Using Xylocaine Anesthesia and modified Seldinger technique, a 6-Nepali sheath was introduced in the right radial artery . Subsequently, selective coronary angiography was performed using a 3.5-Nepali 5 bend Allen catheter. Multiple views of the coronary artery including hemiaxial views were obtained. The 5-Nepali pigtail catheter was used to cross the aortic valve and LVEDP was calculated. An CARLOS view of the left ventricle was obtained. Following that, catheter and sheath were removed. Hemostasis was obtained with deployment of vascular band . There was no immediate complication. Patient was returned to room in stable condition. Of note, the patient received a total of 4000 units of intravenous heparin as well as intra-arterial verapamil. Findings: Fluoroscopy: Calcifications of the coronary arteries were noted. Left main: This is a large-size vessel, bifurcating into LAD and left circumflex, left main has no obstructive disease. LAD: This is a large-size vessel reaching to the apex, giving rise to large diagonal branch. The LAD is calcified proximally has an eccentric 30-40% plaque the rest of the vessel has no high-grade stenosis Left circumflex: This is a large nondominant vessel, giving rise to 2 obtuse marginal branch at the bifurcation of the obtuse marginal branch there is a 30- 40% plaque the rest of the vessel has no high-grade stenosis RCA: This is a large dominant vessel, bifurcating into PDA and PLV the stented segment is patent with no evidence of in-stent restenosis distal to the stent there is a 40% tubular lesion with no high-grade stenosis Left Ventriculogram: Was performed in the 30 CARLOS view revealed global hypokinesis with an ejection fraction of 35-40% there was arrhythmia-induced mitral regurgitation Hemodynamics: There was a 10 mm gradient across the aortic valve , LVEDP was 22- 26 mmHg Conclusion: 1. Calcified coronary arteries 2. Patent stent of the RCA 3. Mild to moderate triple-vessel disease 4. Moderately impaired left ventricle systolic function with elevated left ventricular end-diastolic pressure Recommendations: The patient will continue on medical therapy with maximizing her treatment and follow-up of her left ventricle systolic function. The findings and the recommendations were discussed with the patient and the family and they were in full understanding and agreement. Duration of sedation is 25 minutes.
[2023-03-02] MEDS ORDERED: NON FORMULARY DRUG (Vitamin B Complex [Vitamin B Complex] 1 EACH Capsule) PO SCH (09:00)
[2023-03-02] MEDS ORDERED: LACTATED RINGERS 1,000 ML IV ONE (11:50)
[2023-03-02 12:21] VITALS: BP 106/64; PULSE 74
[2023-03-02] MEDS ORDERED: carvediloL 6.25 MG TAB PO SCH (17:30)
[2023-03-03] MEDS ORDERED: VALSARTAN 40 MG TAB PO SCH (09:00)
[2023-03-03] MEDS ORDERED: ASPIRIN 81 MG PO SCH (09:00)
[2023-03-03] MEDS ORDERED: SPIRONOLACTONE 25 MG TAB PO SCH (09:00)
[2023-03-03] MEDS ORDERED: ATORVASTATIN 40 MG TAB PO SCH (09:00)
== END 2023-03-02 12:17 | disposition home or self-care (01) ==
LOC: CATHCVL 05:48
PROVIDERS: ATTEND Internal Medicine Interventional Cardiology
DX: I25.10 Atherosclerotic heart disease of native coronary artery without angina pectoris (principal); I65.29 Occlusion and stenosis of unspecified carotid artery; I42.9 Cardiomyopathy, unspecified; I10 Essential (primary) hypertension; J44.9 Chronic obstructive pulmonary disease, unspecified; E78.5 Hyperlipidemia, unspecified; F10.90 Alcohol use, unspecified, uncomplicated; F15.90 Other stimulant use, unspecified, uncomplicated; Z87.891 Personal history of nicotine dependence; Z79.82 Long term (current) use of aspirin; Z79.899 Other long term (current) drug therapy; Z95.5 Presence of coronary angioplasty implant and graft
CPT/HCPCS: 93458; 85025; C1769 ×2; C1894; J2250; J2001; J3010; J1644; Q9967

== ENCOUNTER → 2023-12-25 | Outpatient (CLI) | payer OTHER ==
[2023-12-25 19:16] LABS: ALT 18 U/L (8-44); AST 20 U/L (13-35); Albumin 4.5 g/dL (3.8-4.9); Alkaline Phosphatase 74 U/L (41-126); BUN/Creat Ratio 15.83 Ratio (12.00-20.00); Blood Urea Nitrogen 9.5 mg/dL (9.0-27.0); Calcium 9.5 mg/dL (8.7-10.3); Carbon Dioxide 24.8 mmol/L (21.6-31.8); Chloride 102 mmol/L (96-109); Globulin 1.8 g/dL (1.6-3.3); Glucose 103 mg/dL (70-110); LDL Cholesterol,Calculated 95.4 mg/dL (0.0-131.0); Potassium 4.7 mmol/L (3.5-5.5); Sodium 141 mmol/L (135-145); Total Bilirubin 0.4 mg/dL (0.3-1.2); Total Protein 6.3 g/dL (6.2-8.2)
[2023-12-25 19:21] LABS: NT-Pro-B-Type Natriuretic Pept 907 pg/mL (0-125)
== END | disposition home or self-care (01) ==
LOC: LABWHC1 09:21
PROVIDERS: ATTEND Internal Medicine Interventional Cardiology
DX: E78.2 Mixed hyperlipidemia (principal); I25.2 Old myocardial infarction
CPT/HCPCS: 36415; 80053; 80061; 83880

== ENCOUNTER 2024-05-24 11:53 | Observation (INO) | payer OTHER ==
[2024-05-24 13:37] LABS: Basophils # (A) 0.1 k/uL (0-0.2); Basophils % (A) 1 %; Eosinophils # (A) 0.3 k/uL (0-0.7); Eosinophils % (A) 2 %; HCT 36.6 % (34.0-46.0); HGB 12.2 gm/dL (11.4-16.0); Lymphocytes # (A) 2.1 k/uL (1.0-4.8); Lymphocytes % (A) 16 %; MCH 34.4 pg (25.0-35.0); MCHC 33.4 g/dL (31.0-37.0); MCV 102.8 fL (80.0-100.0); Macrocytosis Slight; Mean Platelet Volume 6.8; Monocytes # (A) 0.8 k/uL (0-1.0); Monocytes % (A) 6 %; Neutrophils # (A) 10.2 k/uL (1.3-7.7); Neutrophils % (A) 74 %; Platelet Count 479 k/uL (150-450); RBC 3.56 m/uL (3.80-5.40); RDW 12.1 % (11.5-15.5); WBC 13.8 k/uL (3.8-10.6)
--- NOTE | 2024-05-24 13:47 | XR ---
EXAMINATION TYPE: XR chest 2V DATE OF EXAM: 05/24/2024 COMPARISON: 04/20/2022 CLINICAL INDICATION: Female, 58 years old with history of difficulty breathing; , TECHNIQUE: XR chest 2V views of the chest. FINDINGS: The lungs are clear and there is no pneumothorax, pleural effusion, or focal pneumonia. Heart size normal and no overt failure. Osseous structures demonstrate hypertrophic and degenerative changes of the spine. Atherosclerotic change of the aorta. Biapical pleural thickening. IMPRESSION: 1. No acute process. [facility], , 05/24/2024 1:45 PM
[2024-05-24 14:02] LABS: ALT 19 U/L (4-34); AST 25 U/L (14-36); African American GFR (CKD) >90 (>60 ml/min/1.73 sqM); Albumin 4.4 g/dL (3.5-5.0); Alkaline Phosphatase 83 U/L (38-126); Anion Gap 7 mmol/L; Blood Urea Nitrogen 15 mg/dL (7-17); Calcium 9.9 mg/dL (8.4-10.2); Carbon Dioxide 27 mmol/L (22-30); Chloride 108 mmol/L (98-107); Glucose 184 mg/dL (74-99); Non-African American GFR(CKD) 89 (>60 ml/min/1.73 sqM); Potassium 4.3 mmol/L (3.5-5.1); Sodium 142 mmol/L (137-145); Total Bilirubin 0.2 mg/dL (0.2-1.3); Total Protein 6.3 g/dL (6.3-8.2)
[2024-05-24 14:11] LABS: NT-Pro-B-Type Natriuretic Pept 1490 pg/mL; Prothrombin Time 10.9 sec (10.0-12.5)
[2024-05-24 14:16] LABS: Partial Thromboplastin Time 21.8 sec (22.0-30.0)
[2024-05-24] MEDS ORDERED: NALOXONE 0.4 MG/ML 1 ML VIAL IV PRN (15:09)
--- NOTE | 2024-05-24 15:09 | ED ---
SOB HPI - General Chief Complaint: Shortness of Breath Stated Complaint: HEATHER Time Seen by Provider: 05/24/24 12:12 Source: patient Mode of arrival: ambulatory Limitations: no limitations - History of Present Illness Initial Comments: 58-year-old female with past medical history of coronary artery disease, CHF, COPD who presents to the emergency department reporting shortness of breath. States that for the past week she has had increased shortness of breath. States that she cannot walk 5 feet across the room without having to stop and catch her breath. She has continued to use her inhaler without any improvement in her symptoms. Denies fevers, chills or cough. No lower extremity edema. No weight gain. Does have a history of coronary disease and CHF. 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 She denies chest pain. No other alleviating, precipitating or modifying factors - Related Data Home Medications Medication Instructions Recorded Confirmed Spironolactone [Aldactone] 25 mg PO DAILY 12/18/21 05/24/24 Vitamin B Complex 1 cap PO DAILY 12/18/21 05/24/24 carvediloL [Coreg] 6.25 mg PO BID 12/18/21 05/24/24 Atorvastatin [Lipitor] 40 mg PO HS 02/27/23 05/24/24 Valsartan [Diovan] 40 mg PO DAILY 02/27/23 05/24/24 Umeclidinium Brm/Vilanterol Tr 1 puff INHALATION RT-DAILY PRN 05/24/24 05/24/24 [Anoro Ellipta 62.5-25 Mcg INH] Previous Rx's Medication Instructions Recorded Aspirin 81 mg PO DAILY 30 Days #30 09/02/21 Allergies Allergy/AdvReac Type Severity Reaction Status Date / Time No Known Allergies Allergy Verified 05/24/24 15:22 Review of Systems ROS Statement: Those systems with pertinent positive or pertinent negative responses have been documented in the HPI. ROS Other: All systems not noted in ROS Statement are negative. Past Medical History Past Medical History: Coronary Artery Disease (CAD), Cancer, Hyperlipidemia, Hypertension Additional Past Medical History / Comment(s): stent (August 17), HODGKIN'S LYMPHOMA History of Any Multi-Drug Resistant Organisms: None Reported Past Surgical History: Appendectomy, Heart Catheterization With Stent, Tubal Ligation Additional Past Surgical History / Comment(s): Hodgkins lymphoma x2 back in 2007 and 2009, stent, BILAT AXILLARY BX, COLONOSCOPY, BONE MARROW TRANSPLANT, Past Anesthesia/Blood Transfusion Reactions: No Reported Reaction Date of Last Stent Placement:: 07/2021 Past Psychological History: No Psychological Hx Reported Smoking Status: Current every day smoker Past Alcohol Use History: Occasional Past Drug Use History: None Reported - Past Family History Father Family Medical History: Cancer Additional Family Medical History / Comment(s): Prostate CA, macular d egeneration Mother Family Medical History: No Reported History Sister(s) Additional Family Medical History / Comment(s): epilepsy General Exam Limitations: no limitations General appearance: alert, in no apparent distress Head exam: Present: atraumatic, normocephalic, normal inspection Eye exam: Present: normal appearance, PERRL, EOMI. Absent: scleral icterus, conjunctival injection, periorbital swelling ENT exam: Present: normal exam, mucous membranes moist Neck exam: Present: normal inspection. Absent: tenderness, meningismus, lymphadenopathy Respiratory exam: Present: normal lung sounds bilaterally. Absent: respiratory distress, wheezes, rales, rhonchi, stridor Cardiovascular Exam: Present: regular rate, normal rhythm, systolic murmur. Absent: diastolic murmur, rubs, gallop, clicks GI/Abdominal exam: Present: soft, normal bowel sounds. Absent: distended, tenderness, guarding, rebound, rigid Extremities exam: Present: normal inspection, full ROM, normal capillary refill. Absent: tenderness, pedal edema, joint swelling, calf tenderness Back exam: Present: normal inspection Neurological exam: Present: alert, oriented X3, CN II-XII intact Psychiatric exam: Present: normal affect, normal mood Skin exam: Present: warm, dry, intact, normal color. Absent: rash Course Vital Signs 05/24/24 05/24/24 05/24/24 12:01 15:58 17:41 Temperature 98 F Pulse Rate 103 H 89 95 Pulse Rate [ Pulse Oximetery ] Respiratory 22 18 20 Rate Blood Pressure 119/75 104/49 139/83 Blood Pressure [Left Arm] O2 Sat by Pulse 98 94 L 95 Oximetry 05/24/24 05/24/24 05/24/24 18:08 18:16 22:50 Temperature Pulse Rate 93 96 85 Pulse Rate [ Pulse Oximetery ] Respiratory 17 Rate Blood Pressure 101/62 Blood Pressure [Left Arm] O2 Sat by Pulse 98 Oximetry 05/24/24 23:40 Temperature 97.5 F L Pulse Rate Pulse Rate [ 80 Pulse Oximetery ] Respiratory 18 Rate Blood Pressure Blood Pressure 122/77 [Left Arm] O2 Sat by Pulse 99 Oximetry Medical Decision Making - Medical Decision Making Was pt. sent in by a medical professional or institution (, PA, FISCAL ANALYST, urgent care, hospital, or retirement...) When possible be specific @ -No Did you speak to anyone other than the patient for history (EMS, parent, family, police, friend...)? What history was obtained from this source @ -No Did you review nursing and triage notes (agree or disagree)? Why? @ -I reviewed and agree with nursing and triage notes Were old charts reviewed (outside hosp., previous admission, EMS record, old EKG, old radiological studies, urgent care reports/EKG's, retirement records)? Report findings @ -No old charts were reviewed Differential Diagnosis (chest pain, altered mental status, abdominal pain women, abdominal pain men, vaginal bleeding, weakness, fever, dyspnea, syncope, headache, dizziness, GI bleed, back pain, seizure, CVA, palpatations, mental health, musculoskeletal)? @ -Differential Dyspnea: Coronary syndrome, arrhythmia, tamponade, asthma, COPD, pulmonary embolism, pneumonia, pneumothorax, pulmonary effusion, anaphylaxis, diabetic ketoacidosis, flailed chest, pulmonary contusion, diaphragmatic rupture, anemia, neuromuscular, this is not meant to be an all-inclusive list. EKG interpreted by me (3pts min.). @ -Yes and demonstrates sinus rhythm with rate of 92. GA 168. QRS 150. QTc of 448. Left bundle branch block. No acute ST segment elevation meeting sgarbossa criteria X-rays interpreted by me (1pt min.). @ -Yes which demonstrates no fluid CT interpreted by me (1pt min.). @ -None done U/S interpreted by me (1pt. min.). @ -None done What testing was considered but not performed or refused? (CT, X-rays, U/S, labs)? Why? @ -Echo however patient needs to be hospitalized What meds were considered but not given or refused? Why? @ -None Did you discuss the management of the patient with other professionals (shawn theodore i.e. , PA, FISCAL ANALYST, lab, RT, psych nurse, aids social worker, pelletising extruder operator, teacher, airline pilot/first officer, rehabilitation case coordinator)? Give summary @ -Spoke with Dr. Lovelace for the admission Was smoking cessation discussed for >3mins.? @ -No Was critical care preformed (if so, how long)? @ -No Were there social determinants of health that impacted care today? How? (Homelessness, low income, unemployed, alcoholism, drug addiction, transportation, low edu. Level, literacy, decrease access to med. care, skilled nursing, rehab)? @ -No Was there de-escalation of care discussed even if they declined (Discuss DNR or withdrawal of care, Hospice)? DNR status @ -No What co-morbidities impacted this encounter? (DM, HTN, Smoking, COPD, CAD, Cancer, CVA, ARF, Chemo, Hep., AIDS, mental health diagnosis, sleep apnea, morbid obesity)? @ -CHF, coronary disease Was patient admitted / discharged? Hospital course, mention meds given and route, prescriptions, significant lab abnormalities, going to OR and other pertinent info. @ -Upon arrival patient seen and evaluated in hallway 11. Thorough history and physical exam was performed. Patient denies chest pain. She has no symptoms of acute respiratory insufficiency. Twelve-lead EKG is obtained. Laboratory studies are conducted. Chest x-ray was performed. I am concerned that the patient's exertional dyspnea is related to her heart and may be a coronary equivalent. Her last heart cath was 2 years ago. I do feel that the patient requires echo and cardiology consultation. I recommended admission in order to obtain these. Patient will be admitted to Dr. Lovelace who accepts the admission Undiagnosed new problem with uncertain prognosis? @ -No Drug Therapy requiring intensive monitoring for toxicity (Heparin, Nitro, Insulin, Cardizem)? @ -No Were any procedures done? @ -No Diagnosis/symptom? @ -Acute dyspnea on exertion, suspected coronary disease, history of CHF Acute, or Chronic, or Acute on Chronic? @ -Acute on chronic Uncomplicated (without systemic symptoms) or Complicated (systemic symptoms)? @ -Complicated Side effects of treatment? @ -No Exacerbation, Progression, or Severe Exacerbation? @ -No Poses a threat to life or bodily function? How? (Chest pain, USA, NH, pneumonia, PE, COPD, DKA, ARF, appy, cholecystitis, CVA, Diverticulitis, Homicidal, Suicidal, threat to staff... and all critical care pts) @ -Yes as patient may be suffering from an anginal equivalent - Lab Data Result diagrams: 05/25/24 05:23 05/25/24 05:23 Lab Results 05/24/24 05/24/24 05/24/24 Range/Units 13:25 13:25 13:25 WBC 13.8 H (3.8-10.6) k/uL RBC 3.56 L (3.80-5.40) m/uL Hgb 12.2 (11.4-16.0) gm/dL Hct 36.6 (34.0-46.0) % MCV 102.8 H (80.0-100.0) fL MCH 34.4 (25.0-35.0) pg MCHC 33.4 (31.0-37.0) g/dL RDW 12.1 (11.5-15.5) % Plt Count 479 H (150-450) k/uL MPV 6.8 Neutrophils % 74 % Lymphocytes % 16 % Monocytes % 6 % Eosinophils % 2 % Basophils % 1 % Neutrophils # 10.2 H (1.3-7.7) k/uL Lymphocytes # 2.1 (1.0-4.8) k/uL Monocytes # 0.8 (0-1.0) k/uL Eosinophils # 0.3 (0-0.7) k/uL Basophils # 0.1 (0-0.2) k/uL Macrocytosis Slight PT 10.9 (10.0-12.5) sec INR 1.0 (<1.2) APTT 21.8 L (22.0-30.0) sec D-Dimer 0.48 (<0.60) mg/L FEU Sodium 142 (137-145) mmol/L Potassium 4.3 (3.5-5.1) mmol/L Chloride 108 H (98-107) mmol/L Carbon Dioxide 27 (22-30) mmol/L Anion Gap 7 mmol/L BUN 15 (7-17) mg/dL Creatinine 0.74 (0.52-1.04) mg/dL Est GFR (CKD-EPI)AfAm >90 (>60 ml/min/1.73 sqM) Est GFR (CKD-EPI)NonAf 89 (>60 ml/min/1.73 sqM) Glucose 184 H (74-99) mg/dL Plasma Lactic Acid Francis (0.7-2.0) mmol/L Calcium 9.9 (8.4-10.2) mg/dL Total Bilirubin 0.2 (0.2-1.3) mg/dL AST 25 (14-36) U/L ALT 19 (4-34) U/L Alkaline Phosphatase 83 (38-126) U/L Troponin I (0.000-0.034) ng/mL NT-Pro-B Natriuret Pep 1490 pg/mL Total Protein 6.3 (6.3-8.2) g/dL Albumin 4.4 (3.5-5.0) g/dL 05/24/24 05/24/24 Range/Units 13:25 13:25 WBC (3.8-10.6) k/uL RBC (3.80-5.40) m/uL Hgb (11.4-16.0) gm/dL Hct (34.0-46.0) % MCV (80.0-100.0) fL MCH (25.0-35.0) pg MCHC (31.0-37.0) g/dL RDW (11.5-15.5) % Plt Count (150-450) k/uL MPV Neutrophils % % Lymphocytes % % Monocytes % % Eosinophils % % Basophils % % Neutrophils # (1.3-7.7) k/uL Lymphocytes # (1.0-4.8) k/uL Monocytes # (0-1.0) k/uL Eosinophils # (0-0.7) k/uL Basophils # (0-0.2) k/uL Macrocytosis PT (10.0-12.5) sec INR (<1.2) APTT (22.0-30.0) sec D-Dimer (<0.60) mg/L FEU Sodium (137-145) mmol/L Potassium (3.5-5.1) mmol/L Chloride (98-107) mmol/L Carbon Dioxide (22-30) mmol/L Anion Gap mmol/L BUN (7-17) mg/dL Creatinine (0.52-1.04) mg/dL Est GFR (CKD-EPI)AfAm (>60 ml/min/1.73 sqM) Est GFR (CKD-EPI)NonAf (>60 ml/min/1.73 sqM) Glucose (74-99) mg/dL Plasma Lactic Acid Francis 1.5 (0.7-2.0) mmol/L Calcium (8.4-10.2) mg/dL Total Bilirubin (0.2-1.3) mg/dL AST (14-36) U/L ALT (4-34) U/L Alkaline Phosphatase (38-126) U/L Troponin I <0.012 (0.000-0.034) ng/mL NT-Pro-B Natriuret Pep pg/mL Total Protein (6.3-8.2) g/dL Albumin (3.5-5.0) g/dL Disposition Clinical Impression: Dyspnea on exertion Disposition: ADMITTED IP TO THIS [facility] Condition: Stable Is patient prescribed a controlled substance at d/c from ED?: No Time of Disposition: 15:09 Decision to Admit Reason: Admit from EC Decision Date: 05/24/24 Decision Time: 15:09
[2024-05-24] MEDS ORDERED: IPRATROPIUM-ALBUTEROL 3 ML NEB INHALATION PRN (16:15)
[2024-05-24] MEDS: carvediloL 6.25 MG TAB PO SCH (17:51)
[2024-05-24] MEDS: ACETAMINOPHEN TAB 500 MG TAB PO PRN (17:51)
[2024-05-24] MEDS: IPRATROPIUM-ALBUTEROL 3 ML NEB INHALATION SCH (18:08)
[2024-05-24] MEDS ORDERED: FORMOTEROL FUMARATE 20 MCG/2 ML NEBU INHALATION PRN (20:00)
[2024-05-24] MEDS: ATORVASTATIN 40 MG TAB PO SCH (20:04)
[2024-05-24] MEDS: IBUPROFEN 600 MG TAB PO STA (20:35)
[2024-05-24] MEDS: MELATONIN 5 MG TABLET PO SCH (20:35)
[2024-05-25] MEDS: traZODone HCL 50 MG TAB PO SCH (00:55)
[2024-05-25] MEDS: NICOTINE 21MG/24HR PATCH TRANSDERM STA (00:55)
--- NOTE | 2024-05-25 03:44 | HP ---
HISTORY AND PHYSICAL CHIEF COMPLAINT: Shortness of breath. HISTORY OF PRESENT ILLNESS: This is a 58-year-old woman with a past medical history of multiple medical problems including CAD, hypertension, Hodgkin lymphoma stent, was complaining of shortness of breath while on exertion. The patient came to [facility]. Ejection systolic murmur was noted. BNP is elevated at 1490. Chest x-ray which I reviewed personally showed some increased bronchovascular markings. The patient was admitted for evaluation for possible CHF. There is no history of any fever, rigors, or chills. PAST MEDICAL HISTORY: Reviewed include history of Hodgkin lymphoma, hypertension, hyperlipidemia, and CAD stent. HOME MEDICATIONS: Reviewed include Coreg. Dose and rest of medications reviewed. ALLERGIES: None. FAMILY HISTORY: History of prostate cancer in the family. SOCIAL HISTORY: Current smoking. REVIEW OF SYSTEMS: Fourteen-point review of systems is negative except as mentioned earlier. PHYSICAL EXAMINATION: VITAL SIGNS: Pulse is 89, blood pressure 104/49, respirations 18. HEENT: Conjunctivae normal. NECK: No JVD. CARDIOVASCULAR: S1, S2 muffled. Ejection systolic murmur. RESPIRATIONS: Breath sounds diminished at the bases. No rhonchi. No crackles. ABDOMEN: Soft. LEGS: No edema. NERVOUS SYSTEM: Nonfocal. LABORATORY DATA: WBC 13.8. ASSESSMENT: 1. Shortness of breath, rule out congestive heart failure. 2. History of coronary artery disease stent. 3. History of Hodgkin lymphoma. 4. Hypertension. 5. Hyperlipidemia. 6. Chronic obstructive pulmonary disease. RECOMMENDATIONS AND DISCUSSION: This is a 58-year-old woman, who presented with multiple complex medical issues. We will monitor the patient closely. I would recommend to continue 2D echo with Doppler. I would also recommend Cardiology consultation. Resume the home medications, symptomatic treatment. Prognosis guarded. Further recommendations to follow. See orders for further details. MMODL / IJN: [id number] /
[2024-05-25 06:42] LABS: Basophils # (A) 0.1 k/uL (0-0.2); Basophils % (A) 1 %; Eosinophils # (A) 0.3 k/uL (0-0.7); Eosinophils % (A) 3 %; HCT 31.2 % (34.0-46.0); HGB 10.7 gm/dL (11.4-16.0); Lymphocytes # (A) 2.6 k/uL (1.0-4.8); Lymphocytes % (A) 25 %; MCH 35.1 pg (25.0-35.0); MCHC 34.2 g/dL (31.0-37.0); MCV 102.8 fL (80.0-100.0); Macrocytosis Slight; Mean Platelet Volume 7.3; Monocytes # (A) 0.6 k/uL (0-1.0); Monocytes % (A) 6 %; Neutrophils # (A) 6.4 k/uL (1.3-7.7); Neutrophils % (A) 64 %; Platelet Count 372 k/uL (150-450); RBC 3.04 m/uL (3.80-5.40); RDW 12.7 % (11.5-15.5); WBC 10.1 k/uL (3.8-10.6)
[2024-05-25] MEDS ORDERED: NON FORMULARY DRUG (Vitamin B Complex [Vitamin B Complex] 1 EACH Capsule) PO SCH (09:00)
[2024-05-25] MEDS: SPIRONOLACTONE 25 MG TAB PO SCH (09:29)
[2024-05-25] MEDS: ASPIRIN 81 MG PO SCH (09:29)
[2024-05-25] MEDS: VALSARTAN 40 MG TAB PO SCH (09:29)
[2024-05-25 09:43] LABS: BUN/Creat Ratio 18.83 Ratio (12.00-20.00); Blood Urea Nitrogen 11.3 mg/dL (9.0-27.0); Calcium 8.8 mg/dL (8.7-10.3); Carbon Dioxide 24.9 mmol/L (21.6-31.8); Chloride 107 mmol/L (96-109); Glucose 110 mg/dL (70-110); Potassium 3.9 mmol/L (3.5-5.5); Sodium 142 mmol/L (135-145)
[2024-05-25] MEDS: IBUPROFEN 800 MG TAB PO PRN (10:34)
[2024-05-25] MEDS: FUROSEMIDE 10 MG/ML 4 ML VIAL IV SCH (10:34)
--- NOTE | 2024-05-25 11:30 | CA ---
Transthoracic Echo Report Name: Ana Ji Age: 58 Gender: F : 1965 Exam Date: 05/25/2024 08:15 Exam Location: [place] [facility] Ht (in): 65 Wt (lb): 145 Ordering Physician: Cate Perry DO Attending/Referring Phys: [id number], Orlando Carpenter Ship Cheyanne Hall RDCS Procedure CPT: Indications: exetional dyspnea, murmur, hx ascad Cardiac Hx: Technical Quality: Technically difficult study Contrast 1: Definity Total Dose (mL): 1 Contrast 2: Total Dose (mL): MEASUREMENTS (Male / Female) Normal Values 2D ECHO LV Diastolic Diameter PLAX 4.4 cm 4.2 - 5.9 / 3.9 - 5.3 cm LV Systolic Diameter PLAX 3.2 cm IVS Diastolic Thickness 1.0 cm 0.6 - 1.0 / 0.6 - 0.9 cm LVPW Diastolic Thickness 1.0 cm 0.6 - 1.0 / 0.6 - 0.9 cm LV Relative Wall Thickness 0.5 LVOT Diameter 2.2 cm LV Diastolic Volume MOD BP 116.9 cm??? 67 - 155 / 56 - 104 cm??? LV Systolic Volume MOD BP 93.9 cm??? 22 - 58 / 19 - 49 cm??? LV Ejection Fraction MOD BP 19.7 % >= 55 % LV Cardiac Index MOD BP 1083.5 cm???/min???m??? LV Diastolic Volume MOD 4C 126.2 cm??? LV Systolic Volume MOD 4C 99.5 cm??? LV Ejection Fraction MOD 4C 21.2 % LV Cardiac Index MOD 4C 1255.6 cm???/min???m??? LV Diastolic Length 4C 7.5 cm LV Systolic Length 4C 7.8 cm LV Diastolic Volume MOD 2C 106.9 cm??? LV Systolic Volume MOD 2C 85.9 cm??? LV Ejection Fraction MOD 2C 19.6 % LV Cardiac Index MOD 2C 986.1 cm???/min???m??? LV Diastolic Length 2C 7.7 cm LV Systolic Length 2C 7.5 cm LA Volume 61.9 cm??? 18 - 58 / 22 - 52 cm??? LA Volume Index 35.5 cm???/m??? 16 - 28 cm???/m??? Ascending Aorta Diameter 3.6 cm M-MODE LV Diastolic Diameter MM 5.5 cm 4.2 - 5.9 / 3.9 - 5.3 cm LV Systolic Diameter MM 5.1 cm LV Cardiac Index MM Teich 1183.3 cm???/min???m??? IVS Diastolic Thickness MM 0.8 cm 0.6 - 1.0 / 0.6 - 0.9 cm LVPW Diastolic Thickness MM 1.3 cm 0.6 - 1.0 / 0.6 - 0.9 cm LV Relative Wall Thickness MM 0.4 0.24 - 0.42 / 0.22 - 0.42 LV Mass Index MM 134.2 g/m??? 49 - 115 / 43 - 95 g/m??? DOPPLER AV Peak Velocity 308.7 cm/s AV Peak Gradient 38.1 mmHg AV Mean Velocity 209.0 cm/s AV Mean Gradient 20.6 mmHg AV Velocity Time Integral 68.7 cm LVOT Peak Velocity 101.5 cm/s LVOT Peak Gradient 4.1 mmHg LVOT Velocity Time Integral 19.2 cm LVOT Stroke Volume 75.4 cm??? LVOT Stroke Volume Index 43.7 ml/m??? LVOT Cardiac Index 3541.8 cm???/min???m??? AV Area Cont Eq vti 1.1 cm??? AV Area Cont Eq pk 1.3 cm??? MV Peak Velocity 166.7 cm/s MV Peak Gradient 11.1 mmHg MV Mean Velocity 109.8 cm/s MV Mean Gradient 5.4 mmHg MV Velocity Time Integral 29.4 cm MV Area PHT 9.9 cm??? Mitral E Point Velocity 82.5 cm/s Mitral A Point Velocity 131.0 cm/s Mitral E to A Ratio 0.6 MV Deceleration Time 76.7 ms PV Peak Velocity 112.9 cm/s PV Peak Gradient 5.1 mmHg FINDINGS Left Ventricle Left ventricular ejection fraction is estimated at 20-25 %. Severely increased left ventricular mass. Mildly increased septal wall thickness. Moderately increased posterior wall thickness. Severely decreased fractional shortening. Severely decreased midwall fractional shortening. Mildly increased left ventricular diastolic diameter. Mildly increased left ventricular diastolic volume. Severely increased left ventricular systolic volume. Severely decreased left ventricular ejection fraction. Right Ventricle Normal right ventricular size and function. Unable to estimate the right ventricular systolic pressure. Right Atrium Right atrium not well visualized. Left Atrium Mildly increased left atrial volume. Mildly increased left atrial area. Mitral Valve Mitral valve thickened. No evidence for mitral valve prolapse. Moderate mitral stenosis. Mild mitral regurgitation. Aortic Valve Trileaflet aortic valve. Focal thickening of the aortic valve cusps. Moderte aortic stenosis. No aortic regurgitation. Tricuspid Valve Structurally normal tricuspid valve. No tricuspid stenosis. Trace tricuspid regurgitation. Pulmonic Valve Pulmonic valve not well visualized. No pulmonic stenosis. No pulmonic regurgitation. Pericardium No pericardial effusion. Aorta Normal size aortic root and proximal ascending aorta. CONCLUSIONS Severe LV systolic dysfunction with an ejection fraction of 25% Moderate mitral stenosis Moderate aortic stenosis Previewed by: Dr. Elmer Lim MD (Electronically Signed) Final Date: 25 May 2024 11:29
[2024-05-25] MEDS: HYDROcodone/APAP 5-325MG 1 EACH TAB PO PRN (17:48)
--- NOTE | 2024-05-25 17:49 | P.CNPUL ---
History of Present Illness Consult date: 05/25/24 Requesting physician: Bertram Lovelace Reason for consult: dyspnea, COPD Chief complaint: Shortness of breath, dyspnea on exertion History of present illness: This is a 58-year-old female patient with a known history of Hodgkin's lymphoma, hypertension, hyperlipidemia, coronary artery disease with previous stent placement to the RCA in August 2021, ischemic cardiomyopathy with ejection fraction 30 to 40% in 2022, chronic and ongoing tobacco dependence of greater than 35 years at 1 point up to 3 packs/day currently down to 3 cigarettes a day and had been trialed on Chantix that she states made her sick. She presented here to the emergency room yesterday with complaints of increasing shortness of breath. She states she could not walk 5 feet across the room without having to stop and catch her breath. She denies any fever or chills. No nausea or vomiting. No hemoptysis. No chest tightness or wheezing. No chest pain. She does state these symptoms are similar to prior to her stent in 2021. Chest x- ray shows no acute pulmonary process. Echocardiogram reveals severely impaired left ventricular systolic function with an ejection fraction of 25%. There is moderate mitral stenosis. Moderate aortic stenosis. White count 10.1. Hemoglobin 10.7. Platelets 372. Sodium 142. Potassium 3.9. Bicarb 25. BUN 11. Creatinine 0.6. Glucose 110. D-dimer negative at 0.48. Troponins were negative x 3. proBNP 1490. She is seen today in consultation on the regular medical floor. She is currently sitting up in bed. Awake and alert in no acute distress. She is comfortable at rest. She is maintaining O2 saturations in the 90s on room air. She has declined her breathing treatments stating they do not help. Review of Systems REVIEW OF SYSTEMS: CONSTITUTIONAL: Denies any recent significant weight loss or weight gain. EYES: Denies change in vision. EARS, NOSE, MOUTH, THROAT: Denies headaches, denies sore throat. CARDIOVASCULAR: Denies chest pain, palpitations or syncopal episodes. RESPIRATORY: Positive for shortness of breath, no cough, congestion or hemoptysis. GASTROINTESTINAL: Denies change in appetite, denies abdominal pain GENITOURINARY: Denies hematuria, denies infections. MUSKULOSKELETAL: Denies pain, denies swelling. INTEGUMENTARY: Denies rash, denies eczema. NEUROLOGICAL: Denies recent memory loss, no recent seizure activity. PSYCHIATRIC: Denies anxiety, denies depression. HEMATOLOGIC/LYMPHATIC: Denies anemia, denies enlarged lymph nodes. Past Medical History Past Medical History: Coronary Artery Disease (CAD), Cancer, Hyperlipidemia, Hypertension Additional Past Medical History / Comment(s): stent (August 17), HODGKIN'S LYMPHOMA x2 History of Any Multi-Drug Resistant Organisms: None Reported Past Surgical History: Appendectomy, Heart Catheterization With Stent, Tubal Ligation Additional Past Surgical History / Comment(s): Hodgkins lymphoma x2 back in 2007 and 2009, stent, BILAT AXILLARY BX, COLONOSCOPY, BONE MARROW TRANSPLANT, Past Anesthesia/Blood Transfusion Reactions: No Reported Reaction Date of Last Stent Placement:: 07/2021 Past Psychological History: No Psychological Hx Reported Smoking Status: Current every day smoker Past Alcohol Use History: Occasional Additional Past Alcohol Use History / Comment(s): SMOKES 1 -1 1/2 PPD SINCE AGE 16 Past Drug Use History: None Reported - Past Family History Father Family Medical History: Cancer Additional Family Medical History / Comment(s): Prostate CA, macular degeneration Mother Family Medical History: No Reported History Sister(s) Additional Family Medical History / Comment(s): epilepsy Medications and Allergies Home Medications Medication Instructions Recorded Confirmed Type Aspirin 81 mg PO DAILY 30 Days #30 09/02/21 05/24/24 Rx Spironolactone [Aldactone] 25 mg PO DAILY 12/18/21 05/24/24 History Vitamin B Complex 1 cap PO DAILY 12/18/21 05/24/24 History carvediloL [Coreg] 6.25 mg PO BID 12/18/21 05/24/24 History Atorvastatin [Lipitor] 40 mg PO HS 02/27/23 05/24/24 History Valsartan [Diovan] 40 mg PO DAILY 02/27/23 05/24/24 History Umeclidinium Brm/Vilanterol Tr 1 puff INHALATION RT-DAILY PRN 05/24/24 05/24/24 History [Anoro Ellipta 62.5-25 Mcg INH] Allergies Allergy/AdvReac Type Severity Reaction Status Date / Time No Known Allergies Allergy Verified 05/24/24 15:22 Physical Exam Vitals: Vital Signs Temp Pulse Pulse Resp BP BP Pulse Ox 05/25/24 14:58 98.3 F 92 16 108/67 94 L 05/25/24 12:40 83 17 05/25/24 09:36 83 17 05/25/24 07:00 97.3 F L 83 17 130/77 100 05/25/24 02:12 97.5 F L 85 18 118/69 97 05/25/24 02:07 18 05/24/24 23:40 97.5 F L 80 18 122/77 99 05/24/24 22:50 85 17 101/62 98 05/24/24 18:16 96 05/24/24 18:08 93 05/24/24 17:41 95 20 139/83 95 Intake and Output 05/25/24 05/25/24 05/25/24 06:59 14:59 22:59 Intake Total 591 100 Balance 591 100 Intake: Oral 591 100 Other: # Voids 2 Weight 65.771 kg GENERAL EXAM: Alert, pleasant 58-year-old female, sitting up in bed, on room air, comfortable in no apparent distress. HEAD: Normocephalic. EYES: Normal reaction of pupils, equal size. NOSE: Clear with pink turbinates. THROAT: No erythema or exudates. NECK: No masses, no JVD. CHEST: No chest wall deformity. LUNGS: Equal air entry with no crackles, wheeze, rhonchi or dullness. CVS: S1 and S2 normal with an audible murmur, regular rhythm. ABDOMEN: No hepatosplenomegaly, normal bowel sounds, no guarding or rigidity. SPINE: No scoliosis or deformity SKIN: No rashes CENTRAL NERVOUS SYSTEM: No focal deficits, tone is normal in all 4 extremities. EXTREMITIES: There is no peripheral edema. No clubbing, no cyanosis. Peripheral pulses are intact. Results - Laboratory Findings CBC and BMP: 05/25/24 05:23 05/25/24 05:23 PT/INR, D-dimer PT 10.9 sec (10.0-12.5) 05/24/24 13:25 INR 1.0 (<1.2) 05/24/24 13:25 D-Dimer 0.48 mg/L FEU (<0.60) 05/24/24 13:25 Abnormal lab findings: Abnormal Labs 12/27/24 12/27/24 12/27/24 13:25 13:25 13:25 WBC 13.8 H RBC 3.56 L Hgb Hct MCV 102.8 H MCH Plt Count 479 H Neutrophils # 10.2 H APTT 21.8 L Chloride 108 H Glucose 184 H 05/25/24 05:23 WBC RBC 3.04 L Hgb 10.7 L Hct 31.2 L MCV 102.8 H MCH 35.1 H Plt Count Neutrophils # APTT Chloride Glucose - Diagnostic Findings Chest x-ray: image reviewed Assessment and Plan Assessment: Dyspnea on exertion with minimal activity secondary to severely impaired left ventricular systolic function ejection fraction of 25% and valvular heart disease with moderate aortic and mitral valve stenosis. Chest x-ray reveals no acute pulmonary process History of coronary artery disease with previous stent placement to the RCA in 2021 History of ischemic cardiomyopathy with previous left ventricular systolic function at 35 to 40% and February 2023 Chronic and ongoing heavy tobacco dependence of greater than 35 years Chronic obstructive pulmonary disease Hypertension Hyperlipidemia History of Hodgkin's lymphoma with previous bone marrow transplant in 2007, 2009 Plan: The patient was seen and evaluated Chest x-ray, echocardiogram, labs and medications reviewed Currently stable and on room air Declining breathing treatments as without improvement Will continue DuoNeb inhalations as needed Continue IV diuretics Cardiology consult pending We will continue to follow and make further recommendations based on her clinical status I have personally seen and examined the patient, performed the documentation and the assessment and plan as written. Number of minutes spent on the visit: 20 Dictation was produced using [employer] dictation software. Please excuse any grammatical, word or spelling errors.
[2024-05-26] MEDS: NICOTINE 21MG/24HR PATCH TRANSDERM SCH (04:46)
[2024-05-26 09:53] LABS: Basophils % (A) 0.8 %; Eosinophils # (A) 0.24 X 10*3/uL (0.04-0.35); Eosinophils % (A) 1.9 %; HCT 33.4 % (37.2-46.3); HGB 11.3 g/dL (12.0-15.0); Lymphocytes # (A) 2.05 X 10*3/uL (0.90-5.00); Lymphocytes % (A) 15.9 %; MCH 34.3 pg (27.0-32.0); MCHC 33.8 g/dL (32.0-37.0); MCV 101.5 FL (80.0-97.0); Mean Platelet Volume 9.6 FL (9.5-12.2); Monocytes # (A) 0.81 X 10*3/uL (0.20-1.00); Monocytes % (A) 6.3 %; NRBC Per 100 WBC 0 X 10*3/uL (0.00-0.01); Neutrophils # (A) 9.62 X 10*3/uL (1.80-7.70); Neutrophils % (A) 74.8 %; Platelet Count 391 X 10*3/uL (140-440); RBC 3.29 X 10*6/uL (4.10-5.20); RDW 12.4 % (11.5-14.5); WBC 12.86 X 10*3/uL (4.50-10.00)
[2024-05-26 10:35] LABS: BUN/Creat Ratio 20.78 Ratio (12.00-20.00); Blood Urea Nitrogen 18.7 mg/dL (9.0-27.0); Carbon Dioxide 25.5 mmol/L (21.6-31.8); Chloride 103 mmol/L (96-109); Glucose 125 mg/dL (70-110); Sodium 141 mmol/L (135-145)
--- NOTE | 2024-05-26 12:16 | P.PN ---
Subjective Progress Note Date: 05/26/24 This is a 58-year-old female patient with a known history of Hodgkin's lymphoma, hypertension, hyperlipidemia, coronary artery disease with previous stent placement to the RCA in August 2021, ischemic cardiomyopathy with ejection fraction 30 to 40% in 2022, chronic and ongoing tobacco dependence of greater than 35 years at 1 point up to 3 packs/day currently down to 3 cigarettes a day and had been trialed on Chantix that she states made her sick. She presented here to the emergency room yesterday with complaints of increasing shortness of breath. She states she could not walk 5 feet across the room without having to stop and catch her breath. She denies any fever or chills. No nausea or vomiting. No hemoptysis. No chest tightness or wheezing. No chest pain. She does state these symptoms are similar to prior to her stent in 2021. Chest x- ray shows no acute pulmonary process. Echocardiogram reveals severely impaired left ventricular systolic function with an ejection fraction of 25%. There is moderate mitral stenosis. Moderate aortic stenosis. White count 10.1. Hemoglobin 10.7. Platelets 372. Sodium 142. Potassium 3.9. Bicarb 25. BUN 11. Creatinine 0.6. Glucose 110. D-dimer negative at 0.48. Troponins were negative x 3. proBNP 1490. She is seen today in consultation on the regular medical floor. She is currently sitting up in bed. Awake and alert in no acute distress. She is comfortable at rest. She is maintaining O2 saturations in the 90s on room air. She has declined her breathing treatments stating they do not help. The patient is seen today May 26, 2024 in follow-up on the regular medical floor. She is currently sitting up in bed. Awake and alert in no acute distress. Maintaining O2 saturations in the 90s on room air. Feeling a bit bet ter today compared to yesterday. She remains on Lasix 40 mg IV every 12 hours. White count 12.8. Hemoglobin 11.3. Platelets 391. Sodium 141. Potassium 4.0. Bicarb 26. BUN 19. Creatinine 0.9. Glucose 125. NicoDerm patch in place. Objective - Vital Signs Vital signs: Vital Signs Temp 97.8 F 05/26/24 07:00 Pulse 86 05/26/24 07:00 Resp 18 05/26/24 08:00 BP 100/70 05/26/24 07:00 Pulse Ox 98 05/26/24 07:00 FiO2 Intake & Output 05/25/24 05/26/24 05/26/24 18:59 06:59 18:59 Intake Total 100 236 Balance 100 236 Intake: Oral 100 236 Other: # Voids 2 - Exam GENERAL EXAM: Alert, active, 58-year-old female, on room air, comfortable in no apparent distress. HEAD: Normocephalic. EYES: Normal reaction of pupils, equal size. NOSE: Clear with pink turbinates. THROAT: No erythema or exudates. NECK: No masses, no JVD. CHEST: No chest wall deformity. LUNGS: Equal air entry with no crackles, wheeze, rhonchi or dullness. CVS: S1 and S2 normal with no audible murmur, regular rhythm. ABDOMEN: No hepatosplenomegaly, normal bowel sounds, no guarding or rigidity. SPINE: No scoliosis or deformity SKIN: No rashes CENTRAL NERVOUS SYSTEM: No focal deficits, tone is normal in all 4 extremities. EXTREMITIES: There is no peripheral edema. No clubbing, no cyanosis. Peripheral pulses are intact. - Labs CBC & Chem 7: 05/26/24 06:07 05/26/24 06:07 Labs: Abnormal Lab Results - Last 24 Hours (Table) 05/26/24 05/26/24 Range/Units 06:07 06:07 WBC 12.86 H (4.50-10.00) X 10*3/uL RBC 3.29 L (4.10-5.20) X 10*6/uL Hgb 11.3 L (12.0-15.0) g/dL Hct 33.4 L (37.2-46.3) % MCV 101.5 H (80.0-97.0) FL MCH 34.3 H (27.0-32.0) pg Neutrophils # 9.62 H (1.80-7.70) X 10*3/uL Anion Gap 12.50 H (4.00-12.00) mmol/L BUN/Creatinine Ratio 20.78 H (12.00-20.00) Ratio Glucose 125 H (70-110) mg/dL Assessment and Plan Assessment: Dyspnea on exertion with minimal activity secondary to severely impaired left ventricular systolic function ejection fraction of 25% and valvular heart disease with moderate aortic and mitral valve stenosis. Chest x-ray reveals no acute pulmonary process History of coronary artery disease with previous stent placement to the RCA in 2021 History of ischemic cardiomyopathy with previous left ventricular systolic function at 35 to 40% and February 2023 Chronic and ongoing heavy tobacco dependence of greater than 35 years Chronic obstructive pulmonary disease Hypertension Hyperlipidemia History of Hodgkin's lymphoma with previous bone marrow transplant in 2007, 2009 Plan: The patient was seen and evaluated Labs and medications reviewed Currently stable and on room air Continue IV diuretics Cardiology consult pending We will continue to follow I have personally seen and examined the patient, performed the documentation and the assessment and plan as written. Number of minutes spent on the visit: 10 Dictation was produced using [employer] dictation software. Please excuse any grammatical, word or spelling errors.
--- NOTE | 2024-05-26 14:28 | XR ---
EXAMINATION TYPE: XR chest 1V portable DATE OF EXAM: 05/26/2024 2:05 PM COMPARISON: Chest radiograph from two days prior. CLINICAL INDICATION: Female, 58 years old with history of chf; TECHNIQUE: XR chest 1V portable Frontal view of the chest. FINDINGS: Lungs/Pleura: There is no evidence of pleural effusion, focal consolidation, or pneumothorax. Pulmonary vascularity: Unremarkable. Heart/mediastinum: Cardiomediastinal silhouette is unremarkable. Musculoskeletal: No acute osseous pathology. IMPRESSION: No acute cardiopulmonary disease/process. [facility], , 05/26/2024 2:26 PM
[2024-05-26] MEDS: FUROSEMIDE 40 MG TAB PO SCH (15:50)
[2024-05-27 07:54] VITALS: BP 109/73; PULSE 87; RESP 16; TEMP 98.2
[2024-05-27 08:59] LABS: Calcium 9.6 mg/dL (8.7-10.3); Carbon Dioxide 26.1 mmol/L (21.6-31.8); Chloride 103 mmol/L (96-109); Glucose 114 mg/dL (70-110); Sodium 142 mmol/L (135-145)
--- NOTE | 2024-05-27 09:08 | PN ---
PROGRESS NOTE DATE OF SERVICE: 05/25/2024 SUBJECTIVE: This is a 58-year-old, who was admitted shortness of breath that was suspected to have CHF. The 2D echo showed multiple abnormalities including ejection fraction about 25% as well as moderate mitral stenosis and moderate aortic stenosis. Also, the patient is closely monitored. There is no the patient also had wheezing also. PAST MEDICAL HISTORY: Reviewed. REVIEW OF SYSTEMS: A 14-point review CURRENT MEDICATIONS: Reviewed. PHYSICAL EXAMINATION: VITAL SIGNS: Pulse is 92, blood pressuren, respirations 16. HEENT: Conjunctivae normal CARDIOVASCULAR scattered rhonchi. ABDOMEN: Soft LABORATORY DATA: Rest of the labs ASSESSMENT: 1. Shortness of breath, possibly congestive heart failure acute exacerbation, acute on chronic systolic dysfunction, ejection fraction 25%. 2. Moderate aortic and mitral stenosis. 3. History of coronary artery disease Hodgkin lymphoma. 4. Hypertension. 5. Hyperlipidemia. 6. Chronic obstructive pulmonary disease. RECOMMENDATIONS: Recommend to continue current medications treatment. Otherwise, continue with diuretics, Cardiology, Pulmonology consultations. Prognosis maybe guarded because of multiple complex medical issues and severely abnormal 2D echo, which was visualized and further recommendations to follow. MMODL / IJN: [id number] / MTDD
--- NOTE | 2024-05-27 09:09 | CONS ---
CONSULTATION CHIEF COMPLAINT: Shortness of breath. HISTORY OF PRESENT ILLNESS: This is a 58-year-old lady with history of cardiomyopathy, congestive heart failure, prior history of angioplasty, who presented to hospital with shortness of breath. It is mild to moderate intensity. Has both PND and orthopnea and some leg swelling. She has been treated with diuretics with improvement in her symptoms. She had a cardiac catheterization in February 2023, that revealed a patent stent within the right coronary artery with moderately impaired LV function and calcified coronary arteries. Her labs showed that the troponins are negative. BNP is elevated at 1490. PAST MEDICAL HISTORY: Significant for coronary artery disease, dyslipidemia, cardiomyopathy. HOME MEDICATIONS: Included: 1. Coreg 6.25 b.i.d. 2. Diovan daily. 3. Spironolactone. 4. Lipitor. 5. Aspirin. ALLERGIES: There are no known drug allergies. FAMILY HISTORY: Negative for premature coronary artery disease. SOCIAL HISTORY: Negative for current smoking, EtOH, or drug abuse. REVIEW OF SYSTEMS: 14 out of 14 review of systems has been performed. Pertinents are as documented. PHYSICAL EXAMINATION: VITAL SIGNS: The patient is afebrile. Heart rate is 86 beats per minute, blood pressure is 100/70, respiratory rate 18, O2 saturation is 98% on room air. NECK: There is no jugular venous distention. Carotid upstroke is normal. There is no bruit. CHEST: Reveals good air entry bilaterally. HEART: Reveals first and second heart sounds. No gallop. She has a systolic murmur at the apex. ABDOMEN: Soft. EXTREMITIES: Did not reveal any edema. Peripheral pulses are felt. ASSESSMENT: 1. Acute exacerbation of chronic systolic heart failure. 2. Coronary artery disease, status post angioplasty. PLAN: I will obtain a 2D echo. Continue the patient on IV Lasix. MMODL / IJN: [id number] /
--- NOTE | 2024-05-27 09:11 | PN ---
PROGRESS NOTE SUBJECTIVE: Ana Ji has cardiomyopathy with severe LV systolic dysfunction, had an elevated BNP. We treated her with intravenous diuretics, switched her to p.o. today, possible discharge home tomorrow. OBJECTIVE: VITAL SIGNS: Afebrile. Heart rate is 86 beats per minute, blood pressure is 100/72, respiratory rate is 18, O2 saturation is 98% on room air. NECK: There is no jugular venous distention. CHEST: Reveals good air entry bilaterally. HEART: Reveals first and second heart sounds. No gallop. There is a systolic murmur at the apex. ABDOMEN: Soft. EXTREMITIES: Did not reveal any edema. Peripheral pulses are felt. ASSESSMENT: Cardiomyopathy with acute exacerbation of chronic systolic heart failure. PLAN: We will switch the patient's Lasix to p.o. and possible discharge home tomorrow. MMODL / IJN: [id number] /
[2024-05-27 09:21] LABS: Basophils # (A) 0.13 X 10*3/uL (0.00-0.10); Basophils % (A) 1.1 %; Eosinophils # (A) 0.31 X 10*3/uL (0.04-0.35); Eosinophils % (A) 2.6 %; HCT 35.4 % (37.2-46.3); Lymphocytes # (A) 2.85 X 10*3/uL (0.90-5.00); Lymphocytes % (A) 23.7 %; MCHC 33.9 g/dL (32.0-37.0); MCV 103.2 FL (80.0-97.0); Monocytes # (A) 0.89 X 10*3/uL (0.20-1.00); Monocytes % (A) 7.4 %; NRBC Per 100 WBC 0 X 10*3/uL (0.00-0.01); Neutrophils # (A) 7.78 X 10*3/uL (1.80-7.70); Neutrophils % (A) 64.5 %; Platelet Count 420 X 10*3/uL (140-440); RBC 3.43 X 10*6/uL (4.10-5.20); RDW 12.3 % (11.5-14.5); WBC 12.04 X 10*3/uL (4.50-10.00)
--- NOTE | 2024-05-27 09:26 | CONS ---
CONSULTATION CHIEF COMPLAINT: Shortness of breath. HISTORY OF PRESENT ILLNESS: This is a 58-year-old lady with history of cardiomyopathy, congestive heart failure, hypertension, coronary artery disease, status post prior angioplasty, who presented to the hospital with progressively worsening shortness of breath. She had both PND and orthopnea symptoms lasting for several weeks. Was supposed to see her flour blender, Dr. Quesada in the office, she could not, came to the ER and got admitted. She has known CAD and a cardiac catheterization in February 2023 revealed patent stent within the right coronary artery with moderate LV systolic dysfunction with [id number] triple-vessel disease. At the time of my evaluation this morning, she appears comfortable at rest. An EKG showed sinus rhythm, left bundle branch block, and secondary ST-T wave changes. Her labs showed that the hemoglobin is 10.7, platelet count is 372, potassium is 4.3, and 3 sets of troponins are negative and BNP is 1490. Her clinical presentation is consistent with a diagnosis of acute exacerbation of chronic systolic heart failure. She also carries a history of heart murmur. PAST MEDICAL HISTORY: Significant for cardiomyopathy with congestive heart failure, hypertension, dyslipidemia, and coronary artery disease. MEDICATIONS: Include: 1. Diovan 40 daily. 2. Coreg 6.25 b.i.d. 3. Spironolactone 25 daily. 4. Lipitor 40 daily. 5. Aspirin 81. ALLERGIES: There are no known drug allergies. FAMILY HISTORY: Negative for premature coronary artery disease. SOCIAL HISTORY: Negative for current smoking, EtOH abuse, or drug abuse. REVIEW OF SYSTEMS: 14 out of 14 review of systems has been performed. Pertinents are as documented in history of presenting illness. PHYSICAL EXAMINATION: GENERAL: The patient is afebrile. VITAL SIGNS: Heart rate is 83 beats per minute, blood pressure is 130/77, respiratory rate is 18, O2 saturation is 100% on room air. NECK: There is no jugular venous distention. Carotid upstroke is normal. There is no bruit. CHEST: Good air entry bilaterally. HEART: First and second heart sounds. No gallop. Has an ejection systolic murmur at the right parasternal border, grade 3/6. ABDOMEN: Soft. EXTREMITIES: Did not reveal any edema. Peripheral pulses are felt. LABORATORY DATA: Labs are as described above. EKG is as described above. ASSESSMENT: 1. Acute exacerbation of chronic systolic heart failure. 2. History of ischemic cardiomyopathy with moderate LV dysfunction. 3. Coronary artery disease, status post angioplasty with stent placement of right coronary artery. PLAN: We will treat her with IV Lasix, aspirin, Lipitor, Coreg, and we will follow her echocardiogram and hopefully home tomorrow. CHARLA / DAMIANN: [id number] /
--- NOTE | 2024-05-27 12:14 | PN ---
PROGRESS NOTE DATE OF SERVICE: 05/26/2024 SUBJECTIVE: This 58-year-old woman was admitted with shortness of breath, had multiple abnormalities in the 2D echo. The patient is on diuretics. 2D echo showed ejection fraction about 25% and moderate mitral stenosis and moderate aortic stenosis. There is no history of any fever, rigors, or chills. PAST MEDICAL HISTORY: Reviewed. REVIEW OF SYSTEMS: A 14-point review of systems is negative except as mentioned earlier. CURRENT MEDICATIONS: Reviewed. PHYSICAL EXAMINATION: VITAL SIGNS: Pulse is 86, blood pressure 100/70, respirations 17. CHEST: A few scattered rhonchi. CARDIOVASCULAR: S1, S2. ABDOMEN: Soft. LABORATORY DATA: WBC 12.86. ASSESSMENT: 1. Shortness of breath, possibly congestive heart failure acute exacerbation, with acute on chronic systolic dysfunction, ejection fraction 25%, possible cardiomyopathy. 2. Moderate mitral stenosis. 3. Moderate aortic stenosis. 4. History of coronary artery disease stent. 5. History of Hodgkin lymphoma. 6. Hypertension. 7. Hyperlipidemia. RECOMMENDATION/DISCUSSION: Recommend to continue current medications and treatment. Plan to repeat labs. Closely follow with Cardiology. Increase ambulation. Guarded prognosis. Further recommendations to follow. MMODL / IJN: [id number] / ARY
--- NOTE | 2024-05-27 13:35 | P.PN ---
Subjective HISTORY OF PRESENT ILLNESS: This is a 58-year-old female who is admitted to the hospital secondary to CHF. Patient examined this morning the bedside. Patient currently denies any chest pain or pressure. She denies shortness of breath. She remains on oral diuretics. Vital signs are stable. Patient is hoping to be discharged home today. PHYSICAL EXAM: VITAL SIGNS: Reviewed. GENERAL: Well-developed in no acute distress. NECK: Supple. No JVD or thyromegaly LUNGS: Respirations even and unlabored. Lungs essentially clear to auscultation bilaterally. HEART: Regular rate and rhythm. S1 and S2 heard. EXTREMITIES: Normal range of motion. No clubbing or cyanosis. Peripheral pulses intact. No lower extremity edema ASSESSMENT: Shortness of breath Acute on chronic heart failure with reduced EF Ischemic cardiomyopathy Coronary artery disease with previous PCI Hypertension Hyperlipidemia Nicotine dependence PLAN: Continue current cardiac medications Smoking cessation encouraged Patient is stable for discharge home today from a cardiac standpoint Patient to follow-up postdischarge in the office with Dr. Suero Nurse practitioner note has been reviewed by physician. Signing provider agrees with the documented findings, assessment, and plan of care documented by [employer] as a scribe. Objective - Vital Signs Vital signs: Vital Signs Temp 98.2 F 05/27/24 07:00 Pulse 87 05/27/24 07:00 Resp 16 05/27/24 08:00 BP 109/73 05/27/24 07:00 Pulse Ox 99 05/27/24 07:00 FiO2 Intake & Output 05/26/24 05/27/24 05/27/24 18:59 06:59 18:59 Intake Total 118 Balance 118 Intake: Oral 118 Other: # Voids 3 2 # Bowel Movements 1 - Labs CBC & Chem 7: 05/27/24 05:13 05/27/24 05:13 Labs: Abnormal Lab Results - Last 24 Hours (Table) 05/27/24 05/27/24 Range/Units 05:13 05:13 WBC 12.04 H (4.50-10.00) X 10*3/uL RBC 3.43 L (4.10-5.20) X 10*6/uL Hct 35.4 L (37.2-46.3) % MCV 103.2 H (80.0-97.0) FL MCH 35.0 H (27.0-32.0) pg Immature Gran # 0.08 H (0.00-0.04) X 10*3/uL Neutrophils # 7.78 H (1.80-7.70) X 10*3/uL Basophils # 0.13 H (0.00-0.10) X 10*3/uL Anion Gap 12.90 H (4.00-12.00) mmol/L BUN/Creatinine Ratio 35.00 H (12.00-20.00) Ratio Glucose 114 H (70-110) mg/dL
--- NOTE | 2024-05-28 13:51 | P.DS ---
Providers Date of admission: 05/24/24 15:11 Expected date of discharge: 05/27/24 Attending physician: Fredrick Tavares MD Consults: 05/24/24 15:09 Consult Physician Urgent Consulting Provider: [facility] Consult Reason/Comments: exertional dyspnea, hx chf, hx ascad Do you want consulting provider notified?: Yes 05/25/24 14:25 Consult Physician Routine Consulting Provider: Cristine Porras Consult Reason/Comments: copd chf Do you want consulting provider notified?: Yes Primary care physician: Ej Acosta MD Hospital Course: Final diagnosis Shortness of breath, acute exacerbation with acute on chronic congestive heart failure with systolic dysfunction, cardiomyopathy Moderate mitral stenosis Moderate aortic stenosis History of coronary artery disease with stenting History of Hodgkin's lymphoma Hypertension Hyperlipidemia GI prophylaxis DVT prophylaxis Full code Discharge disposition Patient is being discharged in a stable condition with guarded prognosis to home. Patient will follow-up with Dr. Acosta in the outpatient setting upon discharge. Patient is to continue with current medications and outpatient follow-up with cardiology Dr. Suero as scheduled. Total time taken is greater than 35 minutes. Hospital course This is a 58-year-old female who was recently admitted with shortness of breath and multiple abnormalities on the 2D echo. Patient maintained on diuretics and EF showed 25% with moderate mitral stenosis and aortic stenosis with cardiology following. Continuing with maximizing medical management and close outpatient follow-up with cardiology Dr. Suero. Please refer to other consultation notes for further HPI. Patient reports to feeling improved and would like to go home. Recommend follow-up labs and continuing current medications. Currently no reports of chest pain, shortness of breath, or palpitations. Patient is afebrile. No reports of nausea or vomiting and patient is tolerating diet. Patient will be discharged home today. Guarded prognosis and high risk for readmissions given significant comorbidities Physical exam: Gen: This is a 58-year-old female who is awake, alert oriented x 3, well-developed, well-nourished, appears older than stated age HEENT: Head is atraumatic, normocephalic. Pupils equal, round. Sclerae is anicteric. NECK: Supple. No JVD. No lymphadenopathy. No thyromegaly. LUNGS: Diminished breath sounds bilaterally otherwise clear to auscultation. No wheezes or rhonchi. No intercostal retractions. HEART: Regular rate and rhythm. No murmur. ABDOMEN: Soft. Bowel sounds are present. No masses. No tenderness. EXTREMITIES: No pedal edema. No calf tenderness. NEUROLOGICAL: Patient is awake, alert and oriented x3. Cranial nerves 2 through 12 are grossly intact. Please refer to medication reconciliation sheet for a list of medications. The impression and plan of care has been dictated by Rowena Hernández, Nurse Practitioner as directed. Dr. Radu MD I have performed a history and examination and MDM of this patient, discussed the same with the dictator, and agree with the dictator's assessment and plan as written ,documented as a scribe. Based on total visit time, I have performed more than 50% of the visit. Patient Condition at Discharge: Stable Plan - Discharge Summary New Discharge Prescriptions: New Nicotine 21Mg/24Hr Patch [Habitrol] 1 patch TRANSDERM DAILY #30 patch Furosemide [Lasix] 40 mg PO BID@0900,1600 #60 tab Ibuprofen [Motrin] 400 mg PO Q8H PRN #10 tab PRN Reason: Pain Acetaminophen Tab [Tylenol] 1,000 mg PO Q6HR PRN tab PRN Reason: Fever And/ Or Pain Continue Umeclidinium Brm/Vilanterol Tr [Anoro Ellipta 62.5-25 Mcg INH] 1 puff INHALATION RT-DAILY PRN PRN Reason: Shortness Of Breath Aspirin 81 mg PO DAILY 30 Days #30 Vitamin B Complex 1 cap PO DAILY carvediloL [Coreg] 6.25 mg PO BID Spironolactone [Aldactone] 25 mg PO DAILY Atorvastatin [Lipitor] 40 mg PO HS Valsartan [Diovan] 40 mg PO DAILY Discharge Medication List Aspirin 81 mg PO DAILY 30 Days #30 09/02/21 [Rx] Spironolactone [Aldactone] 25 mg PO DAILY 12/18/21 [History] Vitamin B Complex 1 cap PO DAILY 12/18/21 [History] carvediloL [Coreg] 6.25 mg PO BID 12/18/21 [History] Atorvastatin [Lipitor] 40 mg PO HS 02/27/23 [History] Valsartan [Diovan] 40 mg PO DAILY 02/27/23 [History] Umeclidinium Brm/Vilanterol Tr [Anoro Ellipta 62.5-25 Mcg INH] 1 puff INHALATION RT-DAILY PRN 05/24/24 [History] Acetaminophen Tab [Tylenol] 1,000 mg PO Q6HR PRN tab 05/27/24 [Rx] Furosemide [Lasix] 40 mg PO BID@0900,1600 #60 tab 05/27/24 [Rx] Ibuprofen [Motrin] 400 mg PO Q8H PRN #10 tab 05/27/24 [Rx] Nicotine 21Mg/24Hr Patch [Habitrol] 1 patch TRANSDERM DAILY #30 patch 05/27/24 [Rx] Follow up Appointment(s)/Referral(s): Marcy Suero MD [STAFF PHYSICIAN] - 1 Week (Office will call with appointment date and time.) Ej Acosta MD [Primary Care Provider] - 1-2 days Patient Instructions/Handouts: COPD (Chronic Obstructive Pulmonary Disease) (ED), COPD (Chronic Obstructive Pulmonary Disease) (DC), Dyspnea (DC), Dyspnea (GEN) Activity/Diet/Wound Care/Special Instructions: Activity limited until follow-up Follow-up with primary care provider on discharge Follow-up with cardiology and discuss further outpatient testing Strongly recommend complete tobacco cessation Continue with medications as prescribed Discharge Disposition: HOME SELF-CARE
== END 2024-05-27 13:22 | disposition home or self-care (01) ==
LOC: EC 11:53 → 6NMEDSUR 15:11
PROVIDERS: ADMIT Internal Medicine; ATTEND Internal Medicine
DX: I11.0 Hypertensive heart disease with heart failure (principal); I50.23 Acute on chronic systolic (congestive) heart failure; I25.5 Ischemic cardiomyopathy; I08.0 Rheumatic disorders of both mitral and aortic valves; I25.10 Atherosclerotic heart disease of native coronary artery without angina pectoris; J44.9 Chronic obstructive pulmonary disease, unspecified; E78.5 Hyperlipidemia, unspecified; F17.210 Nicotine dependence, cigarettes, uncomplicated; Z85.72 Personal history of non-Hodgkin lymphomas; Z94.81 Bone marrow transplant status; Z95.5 Presence of coronary angioplasty implant and graft; Z79.82 Long term (current) use of aspirin; Z79.899 Other long term (current) drug therapy
CPT/HCPCS: 96376 ×2; 96374; 99285; 36415; 94640; 93005; 85379; 83880; 80053; 80048 ×3; 83605; 84484; 85025 ×4; 85610; 85730; 71045; 71046; G0378 ×4; C8929; S4990 ×3; J1940 ×2; Q9957; 93306

== ENCOUNTER 2024-08-05 12:15 | Day surgery (SDC) | payer OTHER ==
[~2024-08-05 12:15] MED LIST: ceFAZolin 1 GM in SODIUM CHLORIDE 0.9% IRRIG BTL 250 ML IRRIGATION PRN
[2024-08-05] MEDS: IV FLUID CONTINUATION 1,000 ML IV ONE ×2 (12:30→12:53)
[2024-08-05] MEDS: SODIUM CHLORIDE 0.9% 1,000 ML IV SCH (12:45)
[2024-08-05 12:57] LABS: Basophils # (A) 0.1 k/uL (0-0.2); Basophils % (A) 0 %; Eosinophils # (A) 0.3 k/uL (0-0.7); Eosinophils % (A) 2 %; HCT 37.5 % (34.0-46.0); HGB 11.8 gm/dL (11.4-16.0); Lymphocytes # (A) 2.6 k/uL (1.0-4.8); Lymphocytes % (A) 15 %; MCH 33.1 pg (25.0-35.0); MCHC 31.5 g/dL (31.0-37.0); MCV 105.1 fL (80.0-100.0); Macrocytosis Slight; Mean Platelet Volume 6.6; Monocytes # (A) 1.1 k/uL (0-1.0); Monocytes % (A) 6 %; Neutrophils # (A) 12.7 k/uL (1.3-7.7); Neutrophils % (A) 75 %; Platelet Count 425 k/uL (150-450); RBC 3.57 m/uL (3.80-5.40); RDW 12.5 % (11.5-15.5); WBC 17.1 k/uL (3.8-10.6)
[2024-08-05] MEDS ORDERED: MIDAZOLAM 2 MG/2 ML VIAL ONE (13:15)
[2024-08-05] MEDS ORDERED: KETAMINE HCL IN 0.9 % NACL 50 MG/5 ML SYRINGE ONE (13:15)
[2024-08-05] MEDS ORDERED: diphenhydrAMINE 50 MG/ML 1 ML VIAL ONE (13:15)
[2024-08-05] MEDS ORDERED: PHENYLEPHRINE-0.9% NACL SYG 1,000 MCG/10 ML SYRINGE ONE (13:15)
[2024-08-05] MEDS ORDERED: fentaNYL (PF) 50 MCG/ML 2 ML AMP ONE (13:15)
[2024-08-05] MEDS ORDERED: PROPOFOL 10 MG/ML 20 ML VIAL IV ONE (13:15)
[2024-08-05] MEDS ORDERED: PHENYLEPHRINE 10 MG/ML VIAL ONE (13:15)
[2024-08-05 13:18] LABS: African American GFR (CKD) 72 (>60 ml/min/1.73 sqM); Anion Gap 10 mmol/L; Blood Urea Nitrogen 25 mg/dL (7-17); Calcium 9.7 mg/dL (8.4-10.2); Carbon Dioxide 27 mmol/L (22-30); Chloride 98 mmol/L (98-107); Glucose 111 mg/dL (74-99); Non-African American GFR(CKD) 62 (>60 ml/min/1.73 sqM); Potassium 4.9 mmol/L (3.5-5.1); Sodium 135 mmol/L (137-145)
[2024-08-05] MEDS: ROPIVACAINE 5 MG/ML 30 ML VIAL MISCELLANE ONE (14:30)
[2024-08-05] MEDS: LIDOCAINE 1% INJ 10MG/ML (20 ML MDV) SQ ONE (14:30)
[2024-08-05] MEDS: IOPAMIDOL-370 100ML BTL IVP ONE (14:40)
--- NOTE | 2024-08-05 16:24 | P.EPPROC ---
- EP Procedure Note Electrophysiology Procedure Note: Diagnosis Ischemic cardiomyopathy, chronic Congestive heart failure [employer] class class II Wide QRS, left bundle branch block pattern, QRS width 150 ms On guide line directed medical treatment for greater than 3 months Underlying CAD old MT severe LV dysfunction ejection fraction less than 25% Procedure: Biventricular (left ventricular paced via left bundle pacing lead) ICD implantation for management of risk of sudden cardiac and congestive heart failure Result: Successful biventricular ICD generator implantation, Atrial lead: 2.3 mV, pacing impedance 418 ohms and pacing threshold 0.8 V at 0.4 ms RV ICD lead: 20 mV, pacing impedance 646 ohms, high-voltage impedance 70 ohms and pacing threshold 0.75 V at 0.4 ms Left bundle pacing lead for LV pacing: Model #3830, 69 cm in length Pace impedance 608 ohms, pacing threshold 0.5 V at 0.4 ms Left bundle area pacing, stimulus to V6 peak is 86 ms, QR pattern in lead V1, QS pattern in lead I Procedure details: Patient was brought to the EP lab in a fasting state. Written informed consent was obtained prior to the procedure. Options, pros and cons, benefits and risks and complications discussed with patient in detail prior to the procedure (shared decision making) previously. Importance of continuing medical treatment emphasized previously. Alternatives discussed previously. Left upper extremity venogram performed. 15 mL IV dye injected in the left arm. Patent axillary/subclavian vein The left pectoral area was prepped and draped as a protocol. IV antibiotics administered 1% lidocaine was used for local anesthesia. A 4 cm incision was made parallel to the deltopectoral groove, about 1.5 cm medial to it. The incision was carried down to the level of the pectoralis muscle and the subfascial pocket was made. Hemostasis was assured. The axillary vein access was obtained. Appropriately sized into to see sheaths were placed. ICD lead implanted in the right ventricle and screwed in. ICD lead tested for threshold, sensing, impedances and tested with high output pacing for diaphragmatic stimulation. Negative diaphragmatic stimulation Atrial lead placed in the right atrial appendage and tested for threshold, sensing, impedance, and tested with high output pacing. Phrenic nerve stimulation negative Left bundle pacing lead placed successfully deep in the septum to capture the left bundle area. QR pattern in V1. Rapid stimulus to peak time in the lateral leads Leads secured to the underlying pectoral muscle after removing sheaths . Pocket irrigated with antibiotic solution. Antibiotic pouch placed Leads connected to the biventricular ICD generator. Wound closed in 3 layers and dressed per protocol Biventricular ICD interrogated and programmed. Appropriate pacing parameters, antitachycardia therapies with antitachycardia pacing cardioversion defibri llations programmed. AV delay and biventricular pacing parameters programmed to achieve optimal physiologic pacing. Short AV delay of 130 ms LV-RV offset of 80 ms, DDD 60-120 bpm Appropriate antitachycardia pacing cardioversion and defibrillation's for VT/VF therapy Patient tolerated the procedure well without any acute complications. See scanned device report in EMR for lead details
[2024-08-05] MEDS: carvediloL 6.25 MG TAB PO SCH (18:03)
[2024-08-05] MEDS: ACETAMINOPHEN TAB 325 MG TAB PO PRN (18:55)
[2024-08-05] MEDS: ATORVASTATIN 40 MG TAB PO SCH (19:53)
[2024-08-06 04:10] VITALS: PULSE 76; RESP 17
--- NOTE | 2024-08-06 07:33 | XR ---
EXAMINATION TYPE: XR chest 2V DATE OF EXAM: 08/06/2024 CLINICAL INDICATION: Female, 58 years old with history of Lead placement check, arrhythmia. TECHNIQUE: Frontal and lateral views of the chest are obtained. COMPARISON: Chest x-ray May 26, 2024 FINDINGS: There is new small right pleural effusion. Left lung remains clear. The cardiac silhouette size is stable and within normal limits. There is new muiltlead pacemaker/defibrillator with leads t erminating in the right atrium, coronary sinus, and right ventricle. The osseous structures are int act. IMPRESSION: As above. There is new small right pleural effusion. No pneumothorax seen. [facility], , 08/06/2024 7:30 AM
[2024-08-06 08:18] VITALS: BP 148/77; TEMP 98.7
--- NOTE | 2024-08-06 08:39 | P.DS ---
Providers Attending physician: Loy Sparrow Primary care physician: Ej Acosta MD Hospital Course: Patient's device site has healed well. There is no swelling no hematoma no soakage at the site However she is complaining of severe pain On examination heart sounds are normal breath sounds are clear Heart rate in the 70s and 80s blood pressure 111/69 mmHg Impression CHF class II LBBB QRS width 150 ms Cardiomyopathy of an ischemic nature Status post ICD with left ventricular pacing via left bundle pacing lead 2-lead EKG confirms left bundle area pacing with stimulus-peak R wave time of 80 ms Chest x-ray within normal limits Plan Discharge home after device interrogation Tylenol and Motrin for pain for management for a few days Follow-up in the device clinic in 1 week The patient demanded that the device be taken out today./Removed completely She stated that the device felt too heavy and she did not want it anymore I recommended that she see another maltster for that as I was neither recommending removing the device nor would I perform such a procedure for her. Smoking cessation Continue with guideline directed medical treatment and follow-up with primary online marketer Patient Condition at Discharge: Stable Plan - Discharge Summary Discharge Rx Participant: No New Discharge Prescriptions: Continue RX: Umeclidinium Brm/Vilanterol Tr [Anoro Ellipta 62.5-25 Mcg INH] 1 puff INHALATION RT-DAILY PRN PRN Reason: Shortness Of Breath RX: Furosemide [Lasix] 40 mg PO DAILY RX: Aspirin 81 mg PO DAILY 30 Days #30 RX: Vitamin B Complex 1 cap PO DAILY RX: carvediloL [Coreg] 6.25 mg PO BID RX: Spironolactone [Aldactone] 25 mg PO DAILY RX: Atorvastatin [Lipitor] 40 mg PO HS RX: Valsartan [Diovan] 40 mg PO DAILY Topamax (Unk) 1 tab PO DIRECTED PRN PRN Reason: Migraine Headache RX: Empagliflozin [Jardiance] 10 mg PO DAILY Discharge Medication List RX: Aspirin 81 mg PO DAILY 30 Days #30 09/02/21 [Rx] RX: Spironolactone [Aldactone] 25 mg PO DAILY 12/18/21 [History] RX: Vitamin B Complex 1 cap PO DAILY 12/18/21 [History] RX: carvediloL [Coreg] 6.25 mg PO BID 12/18/21 [History] RX: Atorvastatin [Lipitor] 40 mg PO HS 02/27/23 [History] RX: Valsartan [Diovan] 40 mg PO DAILY 02/27/23 [History] RX: Umeclidinium Brm/Vilanterol Tr [Anoro Ellipta 62.5-25 Mcg INH] 1 puff INHALATION RT-DAILY PRN 05/24/24 [History] RX: Empagliflozin [Jardiance] 10 mg PO DAILY 08/02/24 [History] RX: Furosemide [Lasix] 40 mg PO DAILY 08/02/24 [History] Topamax (Unk) 1 tab PO DIRECTED PRN 08/02/24 [History] Follow up Appointment(s)/Referral(s): Loy Sparrow MD [STAFF PHYSICIAN] - 08/12/24 3:30 pm (Appointment is at the Device Clinic located at [facility] Main Office on [address] Follow-up with Dr. Suero as previously scheduled or within 3 months) Activity/Diet/Wound Care/Special Instructions: PATIENT EDUCATION MATERIAL Instructions following a heart rhythm device implant. 1. Keep dressing DRY for 5 DAYS. You may cover the area with Saran or Cling Wrap, prior to a shower. 2. The dressing will be removed in the [facility] Clinic at [facility]. Absorbable sutures were used to close the wound. 3. Avoid raising the left arm above the shoulder level. 4 week restriction 4. Avoid arm movements, like backscratching, rubbing the head, or pulling on a cord. 4 weeks restriction 5. Gentle range of motion movements of the shoulder, closest to the incision should be performed to avoid a frozen shoulder. (Pendulum exercises of the shoulder) 6. The opposite arm may be used freely. 7. Avoid driving for 7 days. 8. Avoid activities such as golfing, swimming, weed whacking, lifting more than 10 pounds weight, bowling, gymnastics and weight training/lifting. (6 weeks restriction) 9. Activities such as wood chopping with an axe, pull-ups in the gymnasium, power lifting, arc-welding, being close to home induction cooktops will always be a problem. 10. Arm sling is only a reminder not to raise the arm above the head. You do not need to keep the arm completely immobilized. Your free to move the arm and use it and for normal activities. In case of any problems, please call [facility] [place], @ [phone], Attention: Device Clinic Device clinic follow-up in 5 days Follow-up with primary online marketer in 2-3 months Discharge Disposition: HOME SELF-CARE
[2024-08-06] MEDS: SPIRONOLACTONE 25 MG TAB PO SCH (08:58)
[2024-08-06] MEDS: DAPAGLIFLOZIN PROPANEDIOL 5 MG TABLET PO SCH (08:58)
[2024-08-06] MEDS: FUROSEMIDE 40 MG TAB PO SCH (08:59)
[2024-08-06] MEDS: ASPIRIN 81 MG PO SCH (08:59)
[2024-08-06] MEDS: VALSARTAN 40 MG TAB PO SCH (08:59)
== END 2024-08-06 11:20 | disposition home or self-care (01) ==
LOC: CATHEP 12:15 → 6NMEDSUR 16:24 → CATHEP 08-06 11:20
PROVIDERS: ATTEND Internal Medicine Clinical Cardiac Electrophysiology
DX: I11.0 Hypertensive heart disease with heart failure (principal); I50.22 Chronic systolic (congestive) heart failure; I42.0 Dilated cardiomyopathy; I25.5 Ischemic cardiomyopathy; I25.10 Atherosclerotic heart disease of native coronary artery without angina pectoris; I25.2 Old myocardial infarction; Z95.5 Presence of coronary angioplasty implant and graft; I73.9 Peripheral vascular disease, unspecified; I44.7 Left bundle-branch block, unspecified; I08.3 Combined rheumatic disorders of mitral, aortic and tricuspid valves; F17.210 Nicotine dependence, cigarettes, uncomplicated; Z79.82 Long term (current) use of aspirin; Z79.84 Long term (current) use of oral hypoglycemic drugs; Z79.899 Other long term (current) drug therapy
CPT/HCPCS: 33249; 93005; 80048; 84443; 85025; 71046; C1769 ×3; C1892 ×2; C1730; C1887; C1898; C1895; C1882; J2250; J1200; J0690 ×2; J2003; J3010; J2795; J2704; Q9967; J2371 ×2